=== PATIENT | female | born 1945 | race Asian ===

== ENCOUNTER 2017-07-26 14:20 | Inpatient (IN) | payer OTHER, MEDICAID ==
[~2017-07-26] VITALS: Ht 157.5 cm; Wt 54.9 kg
[2017-07-26] MEDS ORDERED: DEXAMETHASONE SOD PHOSPHATE 10 MG/ML VIAL ONE (14:57)
[2017-07-26] MEDS ORDERED: IPRATROPIUM NEB FS 0.5 MG/2.5 ML AMPUL.NEB NEB ONE (15:00)
[2017-07-26] MEDS ORDERED: ALBUTEROL FS 2.5 MG/3 ML VIAL.NEB CONTNEB ONE (15:00)
[2017-07-26] MEDS ORDERED: DEXAMETHASONE SOD PHOSPHATE 10 MG/ML VIAL IV ONE (15:00)
--- NOTE | 2017-07-26 15:00 | NUR ---
[id number]: SOB, ALBUTEROL BT GIVEN IN FIELD. BS IN FIELD 268. SEEN BY FOR EVAL. VSS. PT AAOX3. IV ACCESS LIFT TRUCK MECHANIC. REMAINS ON MAS. SAFETY AND COMFORT MEASURES PROVIDED. WILL MONITOR.
[2017-07-26] MEDS ORDERED: ALBUTEROL FS 2.5 MG/3 ML VIAL.NEB ONE (15:06)
[2017-07-26] MEDS ORDERED: RACEPINEPHRINE HCL 2.25% NEB 0.5 ML VIAL.NEB IH ONE (15:06)
--- NOTE | 2017-07-26 15:10 | NUR ---
RT CALLED FOR BREATHING TX.
[2017-07-26 15:23] LABS: BASOPHILS % (AUTO) 0.3 % (0.0-2.0); EOSINOPHILS % (AUTO) 0.2 % (0.0-6.0); HEMATOCRIT 37 % (33-45); HEMOGLOBIN 12.2 g/dL (11.5-14.8); LYMPHOCYTES # (AUTO) 0.9 /CMM (0.8-4.8); LYMPHOCYTES % (AUTO) 17.6 % (20.0-44.0); MEAN CORPUSCULAR HEMOGLOBIN 29 PG (26.0-33.0); MEAN CORPUSCULAR HGB CONC 33 g/dl (31.0-36.0); MEAN CORPUSCULAR VOLUME 87 fL (82-100); MONOCYTES # (AUTO) 0.8 /CMM (0.1-1.30); MONOCYTES % (AUTO) 16.1 % (2.0-12.0); NEUTROPHILS # (AUTO) 3.3 /CMM (1.8-8.9); NEUTROPHILS % (AUTO) 65.8 % (43.0-81.0); PLATELET COUNT (AUTO) 189 /CMM (150-450); RDW COEFFICIENT OF VARIATION 13.7 (11.5-15.0)
[2017-07-26 15:40] LABS: CALCIUM, SERUM 8.6 mg/dL (8.5-10.1); CARBON DIOXIDE 25 mmol/L (21-32); CHLORIDE 101 mmol/L (98-107); CREATININE 1.4 mg/dL (0.6-1.3); GLUCOSE 275 mg/dL (74-106); POTASSIUM 4.4 mmol/L (3.5-5.1); SODIUM SERUM 136 mmol/L (136-145); UREA NITROGEN, BLOOD 25 mg/dL (7-18)
--- NOTE | 2017-07-26 15:45 | NUR ---
MILTON AT BS.
[2017-07-26 15:47] LABS: TROPONIN I < 0.017 ng/mL (0.00-0.056)
[2017-07-26 15:50] LABS: ALANINE AMINOTRANSFERASE 63 U/L (12-78); ALKALINE PHOSPHATASE 105 U/L (46-116); ASPARTATE AMINOTRANSFERASE 27 U/L (15-37); B-TYPE NATRIURETIC PEPTIDE 92 PG/ML (0-125); BILIRUBIN,DIRECT 0.1 mg/dL (0.0-0.2); BILIRUBIN,TOTAL 0.3 mg/dL (0.2-1.0); TOTAL PROTEIN, SERUM 6.9 g/dL (6.4-8.2)
[2017-07-26] MEDS ORDERED: ASPI-1169 PO (16:22)
[2017-07-26] MEDS ORDERED: SITA50TA PO (16:22)
[2017-07-26] MEDS ORDERED: ATOR10TA PO (16:22)
[2017-07-26] MEDS ORDERED: OMEP20CA10 PO (16:22)
[2017-07-26] MEDS ORDERED: BUDE10.2 IH (16:22)
[2017-07-26] MEDS ORDERED: ALBU8.5H8 IH (16:22)
[2017-07-26] MEDS ORDERED: ALEN70TA45 PO (16:22)
[2017-07-26 17:23] LABS: LYMPHOCYTES % (MANUAL) 15 % (16-48); MONOCYTES % (MANUAL) 15 % (0-11.0); NEUTROPHILS % (MANUAL) 70 (42-76)
--- NOTE | 2017-07-26 17:30 | NUR ---
FAMILY MEMBER, LANDRY AT BS AND UPDATED WITH POC. PT WAS ALSO FED PER REQUEST.
[2017-07-26] MEDS ORDERED: METF500T4 PO (18:18)
[2017-07-26] MEDS ORDERED: QUET25TA PO (18:18)
[2017-07-26] MEDS ORDERED: PALI117D IM (18:18)
[2017-07-26] MEDS ORDERED: LITH300T3 PO (18:18)
[2017-07-26] MEDS ORDERED: LAMO150T PO (18:18)
[2017-07-26] MEDS ORDERED: TIOT18CA3 IH (18:18)
[2017-07-26] MEDS ORDERED: IV NS 0.9% 1,000 ML IV PRN (18:45)
[2017-07-26] MEDS ORDERED: ONDANSETRON HCL/PF 4 MG/2 ML VIAL IVP PRN (19:00)
[2017-07-26] MEDS ORDERED: MAG HYDROX/AL HYDROX/SIMETH 30 ML UDC PO PRN (19:00)
[2017-07-26] MEDS ORDERED: DEXTROSE 50%-WATER 50 ML DISP.SYRIN IV PRN (19:00)
[2017-07-26] MEDS ORDERED: IPRATROPIUM NEB FS 0.5 MG/2.5 ML AMPUL.NEB NEB PRN (19:00)
[2017-07-26] MEDS ORDERED: ACETAMINOPHEN 325 MG TABLET PO PRN (19:00)
[2017-07-26] MEDS ORDERED: ALBUTEROL FS 2.5 MG/0.5 ML VIAL.NEB NEB PRN (19:00)
--- NOTE | 2017-07-26 20:19 | NUR ---
REPORT CALLED TO BONDERIZER JEM. WILL TRANSPORT PT VIA ACLS PROTOCOL.
--- NOTE | 2017-07-26 20:45 | NUR ---
ADMISSION NOTES: RECEIVED REPORT FROM ED FOR E.R, PT CAME IN FOR ASTHMA EXACERBATION, BROUGHT TO THE UNIT VIA WHEELCHAIR, A/O X3, ROMANSH BUT ABLE TO UNDERSTAND AND SPEAK ROMANIAN, ABLE TO MAKE NEEDS KNOWN. PT DENIES ANY PAIN OR DISCOMFORT AT THIS TIME. NOTED INSPIRATORY WHEEZING, PER REPORT PT GIVEN BREATHING TX PRIOR TO COMING TO THE UNIT. PT HAS LEFT WRIST G 18, PATENT AND FLUSHING WELL, BUT PT C/O DISCOMFORT ON IV SITE, WILL TRY TO INSERT NEW ACCESS. ORIENTED PT TO UNIT POLICY AND HOURLY ROUNDING. PLACED ON TELE MONITORING, CURRENTLY SINUS RHYTHM HR 99, PT TACHYPNEIC RR 26, 95% ON RA, WILL PLACE ON 2L VIA NC FOR SUPPORT FOR BREATHING, VS TAKEN AND RECORDED, INVENTORY OF BELONGING COMPLETED BY JESENIA PARKINSON, CONFISCATED OIL WELL SERVICES SUPERINTENDENT AND CIGARETTE, PT REFUSED TO SEND HER DONIS TO SAFE, EDUCATION PROVIDED TO THE PT. SKIN ASSESSMENT PERFORMED AND NO SKIN ISSUE NOTED. SAFETY PRECAUTIONS FOR FALL INITIATED CALL LIGHT IN REACH, WILL CONTINUE TO MONITOR
[2017-07-26 21:30] VITALS: BP 149/72
[2017-07-26] MEDS: BLOOD SUGAR DIAGNOSTIC 1 EACH STRIP IN SCH (21:46)
[2017-07-26] MEDS: methylPREDNISolone SOD SUCC 40 MG/ML VIAL IV SCH (21:46)
--- NOTE | 2017-07-26 22:00 | NUR ---
RN NOTES: PT REFUSED IVF, STATED SHE DOESNT NEED IT SHE'S DRINKING ENOUGH FLUIDS, EDUCATION PROVIDED TO THE PT
[2017-07-26] MEDS: INSULIN REGULAR, HUMAN 100 UNIT/ML 3 ML VIAL SQ PRN (22:04)
--- NOTE | 2017-07-26 22:04 | NUR ---
ACCU CHECK: BLOOD SUGAR IS 299, 6UNITS OF INSULIN GIVEN PER SLIDING SCALE, PT TOLERATING PO INTAKE ON CARDIAC CCHO DIET,
--- NOTE | 2017-07-26 22:24 | NUR ---
Paged epic: contacted [facility] call center professional, relayed about pt's request for seroquel, stated she needs to take her seroquel dose for tonight 12.5mg, she hasnt take her seroquel dose, talked to [facility] call center professional, per okay to give seroquel 12.5mg x 1 dose tonight
[2017-07-26] MEDS ORDERED: QUETIAPINE FUMARATE 25 MG TABLET PO ONE (22:30)
--- NOTE | 2017-07-26 22:43 | NUR ---
SEROQUEL X1: ONE TIME DOSE ORDERED BY , FOR PT REQUEST OF SEROQUEL, SHE STATED SHE DIDNT TAKE HER NIGHT TIME DOSE SHE WAS BROUGHT TO ER DUE TO ASTHMA
--- NOTE | 2017-07-26 23:00 | NUR ---
CALLED RT TO GIVE PRN BREATHING TX
--- NOTE | 2017-07-26 23:30 | NUR ---
RN NOTES: INFORMED PT SHE IS ON BED REST, OFFERED BED SIDE COMMODE FOR THE PT, HOWEVER PT REFUSED, STATED SHE'S NOT COMFORTABLE USING COMMODE, AND PREFER TO USE THE RESTROOM INSTEAD, INFORMED PT OF POSSIBILITY OF INCREASING SOB WITH EXERTION BUT PT DOESNT LISTEN, OFFERED BED MOYER, PT REFUSED IT TOO.
[2017-07-26] MEDS: IPRATROPIUM NEB FS 0.5 MG/2.5 ML AMPUL.NEB NEB SCH (23:58)
[2017-07-27] VITALS: BP 135/67
[2017-07-27 04:00] VITALS: BP_SYST 123; BP_SYST 138; BP_DIAS 66; BP_DIAS 88
[2017-07-27] MEDS: methylPREDNISolone SOD SUCC 40 MG/ML VIAL IV SCH ×3 (04:24→22:02)
[2017-07-27] MEDS: BLOOD SUGAR DIAGNOSTIC 1 EACH STRIP IN SCH ×2 (06:14→12:31)
[2017-07-27] MEDS: INSULIN REGULAR, HUMAN 100 UNIT/ML 3 ML VIAL SQ PRN ×3 (06:15→22:14)
--- NOTE | 2017-07-27 06:16 | NUR ---
ACCU CHECK: BLOOD SUGAR CHECKED AND RESULT IS 232, 4UNITS OF INSULIN GIVEN PER SLIDING SCALE, PT ON CARDIAC DIET TOLERATING PO INTAKE WELL, ALSO ON STEROIDS
--- NOTE | 2017-07-27 06:44 | NUR ---
RESIDENT PROGRAM SPECIALIST CLOSING NOTES: PT IN BED, AWAKE, DENIES ANY PAIN AT THIS TIME, PT REMAIN ON 2L VIA NC RESPIRATION EVEN, STILL TACHYPNEIC RR 23, INSPIRATORY WHEEZING NOTED, BREATHING TX GIVEN SCHEDULED, ON TELE MONITORING SINUS RHYTHM HR 88. LEFT FA IV ACCESS REMAINS PATENT AND FLUSHING WELL, ON HL. VS REMAINS STABLE, NEEDS ATTENDED. SAFETY PRECAUTIONS FOR FALL REMAIN ENGAGED, CALL LIGHT IN REACH, WILL ENDORSE TO DAY RN FOR SRIKANTH.
[2017-07-27 07:14] LABS: BASOPHILS % (AUTO) 0.3 % (0.0-2.0); HEMATOCRIT 36 % (33-45); HEMOGLOBIN 12.1 g/dL (11.5-14.8); LYMPHOCYTES # (AUTO) 0.7 /CMM (0.8-4.8); LYMPHOCYTES % (AUTO) 16.5 % (20.0-44.0); MEAN CORPUSCULAR HEMOGLOBIN 30 PG (26.0-33.0); MEAN CORPUSCULAR HGB CONC 34 g/dl (31.0-36.0); MEAN CORPUSCULAR VOLUME 87 fL (82-100); MONOCYTES # (AUTO) 0.3 /CMM (0.1-1.30); MONOCYTES % (AUTO) 7.2 % (2.0-12.0); NEUTROPHILS # (AUTO) 3.1 /CMM (1.8-8.9); PLATELET COUNT (AUTO) 198 /CMM (150-450); RDW COEFFICIENT OF VARIATION 13.6 (11.5-15.0); RED BLOOD CELL COUNT(AUTO) 4.09 MIL/uL (4.0-5.2)
[2017-07-27] MEDS: IPRATROPIUM NEB FS 0.5 MG/2.5 ML AMPUL.NEB NEB SCH ×3 (07:35→14:37)
[2017-07-27 07:44] LABS: CALCIUM, SERUM 8.5 mg/dL (8.5-10.1); CARBON DIOXIDE 26 mmol/L (21-32); CHLORIDE 103 mmol/L (98-107); CREATININE 1.2 mg/dL (0.6-1.3); GLUCOSE 232 mg/dL (74-106); MAGNESIUM 2.1 mg/dL (1.8-2.4); PHOSPHORUS 2.9 mg/dL (2.5-4.9); POTASSIUM 4.6 mmol/L (3.5-5.1); SODIUM SERUM 137 mmol/L (136-145); UREA NITROGEN, BLOOD 23 mg/dL (7-18)
--- NOTE | 2017-07-27 07:48 | NUR ---
TELE/RN OPENING NOTE RECEIVED PATIENT IN BED AWAKE. ALERT AND ORIENTED X3. RESPIRATION REGULAR AND UNLABORED. NOTED BILATERAL WHEEZING. ON OXYGEN AT 2L/MIN VIA NC. DENIES PAIN, SOB AT THIS TIME. ON MULTIPLE TUBE WINDING MACHINE OPERATOR AND SR AT 90. IN NO APPARENT DISTRESS. ASSISTED TO RESTROOM. ABLE TO VOID FREELY. NOTED CLEAR, YELLOW COLOR URINE. LFA G 22 FL. PATIENT IN NO APPARENT DISTRESS. BED LOW AND LOCKED. SIDE RAILS UP X3. CALL LIGHT WITHIN REACH. WILL CONTINUE TO MONITOR.
[2017-07-27 07:51] LABS: CHOLESTEROL 136 mg/dL (<200); HDL CHOLESTEROL 88 mg/dL (40-60); LDL 52 mg/dL (0-99); TRIGLYCERIDES 49 mg/dL (30-150)
[2017-07-27 08:00] VITALS: BP 125/66
[2017-07-27] MEDS: PANTOPRAZOLE 40 MG TABLET.DR PO SCH (08:04)
[2017-07-27] MEDS: ASPIRIN 81 MG TAB.CHEW PO SCH (08:04)
[2017-07-27] MEDS ORDERED: DEXTROSE 50%-WATER 50 ML DISP.SYRIN IV PRN (13:30)
[2017-07-27] MEDS ORDERED: LORAZEPAM INJ 2 MG/ML VIAL IV ONE (13:30)
[2017-07-27] MEDS: BLOOD SUGAR DIAGNOSTIC 1 EACH STRIP VI SCH ×3 (14:17→21:47)
[2017-07-27] MEDS: ALBUTEROL FS 2.5 MG/0.5 ML VIAL.NEB NEB SCH ×2 (14:37→19:26)
[2017-07-27 16:00] VITALS: BP 131/58
[2017-07-27] MEDS: *INSULIN REGULAR(HUMULIN R)HUM 100 UNIT/ML VIAL SQ PRN (17:59)
[2017-07-27] MEDS: LamoTRIgine 100 MG TABLET PO SCH (18:03)
[2017-07-27] MEDS: QUETIAPINE FUMARATE 25 MG TABLET PO SCH (18:04)
[2017-07-27] MEDS: LITHIUM CARBONATE (300 MG CAP) 300 MG CAPSULE PO SCH (18:04)
[2017-07-27] MEDS: ATORVASTATIN 10 MG TABLET PO SCH (18:07)
--- NOTE | 2017-07-27 18:12 | NUR ---
MS/RN CLOSING NOTE PATIENT A/O X3. BILATERAL WHEEZING NOTED. ON OXYGEN AT 2 l /MIN VIA NC. RESPIRATION REGULAR AND UNLABORED. DENIES SOB, PAIN AT THIS TIME. THE PATIENT WITH LFA G 22 HL. GOOD SKIN CARE RENDERED. KEPT CLEAN AND COMFORTABLE. ALL NEEDS ATTENDED AND ANTICIPATED. CALL LIGHT WITHIN REACH. SIDE RAILS UP X2. WILL ENDORSE TO NIGH SHIFT.
[2017-07-27 20:00] VITALS: BP 128/68
--- NOTE | 2017-07-27 20:20 | NUR ---
A/O x 4 o2@ 2L n/c s/l 22 ga to Left forearm intact, patent and no s/s of infection. Denies of any distress. Siderails up, call light within reach bed in lowest position. Remain stable and cooperative with staff.
[2017-07-28] MEDS: IPRATROPIUM NEB FS 0.5 MG/2.5 ML AMPUL.NEB NEB SCH ×4 (01:17→19:41)
[2017-07-28] MEDS: ALBUTEROL FS 2.5 MG/0.5 ML VIAL.NEB NEB SCH ×4 (01:17→19:41)
[2017-07-28] MEDS: methylPREDNISolone SOD SUCC 40 MG/ML VIAL IV SCH ×3 (04:21→21:53)
[2017-07-28] MEDS: *INSULIN REGULAR(HUMULIN R)HUM 100 UNIT/ML VIAL SQ PRN ×2 (06:14→22:36)
[2017-07-28] MEDS: PANTOPRAZOLE 40 MG TABLET.DR PO SCH (06:21)
--- NOTE | 2017-07-28 07:05 | NUR ---
RN NOTES PT IS SITTING UP IN BED, RESTING COMFORTABLY. IV ON LFA INTACT AND SL. PT ON 2L, RESPIRATIONS ARE EVEN AND UNLABORED. REQUESTED 1:1 SITTER FOR THE PT DUE TO FALL RISK BUT NO ONE WAS AVAILABLE AT THIS TIME. BED ALARM IS ON, SIDE RAILS UP X2, CALL LIGHT IS IN REACH. WILL CONTINUE TO MONITOR.
[2017-07-28] MEDS: INSULIN REGULAR, HUMAN 100 UNIT/ML 3 ML VIAL SQ PRN ×3 (07:59→17:37)
[2017-07-28] MEDS: BLOOD SUGAR DIAGNOSTIC 1 EACH STRIP VI SCH ×4 (07:59→21:55)
[2017-07-28 08:00] VITALS: BP 144/69
[2017-07-28] MEDS: ASPIRIN 81 MG TAB.CHEW PO SCH (08:02)
[2017-07-28] MEDS: CEFTRIAXONE 1 G in IV D5W 50 ML IV SCH (10:54)
[2017-07-28 16:00] VITALS: BP 130/66
[2017-07-28] MEDS: LITHIUM CARBONATE (300 MG CAP) 300 MG CAPSULE PO SCH (17:33)
[2017-07-28] MEDS: LamoTRIgine 100 MG TABLET PO SCH (17:33)
[2017-07-28] MEDS: QUETIAPINE FUMARATE 25 MG TABLET PO SCH (17:33)
[2017-07-28] MEDS: ATORVASTATIN 10 MG TABLET PO SCH (17:33)
--- NOTE | 2017-07-28 18:31 | NUR ---
RN NOTES PT IS SITTING UP IN BED, AWAKE AND ALERT. PT ON 2L O2, RESPIRATIONS ARE EVEN AND UNLABORED. IV ON LFA INTACT AND SL. ALL MEDS WERE GIVEN ORDERED AND PT NEEDS MET. PT WAS ABLE TO SHOWER THIS EVENING. 1730 ACCUCHECK WAS 169, 3 UNITS OF INSULIN GIVEN. SAFETY MEASURES ARE IN PLACE, CALL LIGHT IS IN REACH. WILL ENDORSE TO PACK WORKER RN FOR CONTINUITY OF CARE.
--- NOTE | 2017-07-28 19:20 | NUR ---
MSRN SLEEPING, APPEARS COMFORTABLE. TO CONTINUE.
[2017-07-28] MEDS ORDERED: IPRATROPIUM NEB FS 0.5 MG/2.5 ML AMPUL.NEB NEB SCH (19:30)
[2017-07-28 20:00] VITALS: BP 144/67
--- NOTE | 2017-07-28 22:06 | NUR ---
MSRN BS WAS 314, COVERED WITH 8 UNITS OF REGULAR INSULIN SQ. SNACKS PROVIDED. BRP WITH STANDBY ASSIST, SAFETY AWARENESS EMPHASIZED TO PATIENT, WELL UNDERSTOOD. REMINDED TO CALL STAFF EVERYTIME SHE NEED TO USE RESTROOM. STATED ABLE TO GO BY HERSELF. EXPLAINED RISK OF FALLING, STATED WILL CALL IF NEEDED. OFFERED BSC REFUSED. SOB ON MIN EXERTION 02 2L VIA NC MAINTAINED. CLOSELY WATCHED.
[2017-07-29] MEDS: IPRATROPIUM NEB FS 0.5 MG/2.5 ML AMPUL.NEB NEB SCH ×3 (00:58→13:43)
[2017-07-29] MEDS: ALBUTEROL FS 2.5 MG/0.5 ML VIAL.NEB NEB SCH ×3 (00:58→13:43)
--- NOTE | 2017-07-29 04:45 | NUR ---
MSRN FULLY AWAKE, NEEDS ATTENDED. EXERTIONAL SOB SEEN OFF O2. ESCORTED BACK TO ROOM O2 EMPHASIZED USE. ALL NEEDS MADE, BEDREST INSTRUCTED. CLOSELY WATCHED.
[2017-07-29] MEDS: methylPREDNISolone SOD SUCC 40 MG/ML VIAL IV SCH ×2 (05:50→12:48)
--- NOTE | 2017-07-29 06:40 | NUR ---
MSRN BLOOD SUGAR 183, COVERRED WITH 2 UNITS REG INSULIN SQ. NO OTHER NEEDS MADE
[2017-07-29] MEDS: BLOOD SUGAR DIAGNOSTIC 1 EACH STRIP VI SCH ×2 (07:02→11:45)
[2017-07-29] MEDS: INSULIN REGULAR, HUMAN 100 UNIT/ML 3 ML VIAL SQ PRN ×2 (07:06→11:52)
--- NOTE | 2017-07-29 07:35 | NUR ---
RN OPENING NOTES RECEIVED PT. IN BED A&OX3. BREATHING EVENLY, AND UNLABORED ON OXYGEN AT 2L/MIN. PT. HAS A COUGH. NO S/S OF ACUTE DISTRESS. IV ACCESS ON LEFT FOREARM IS INTACT. BED IS IN LOWEST AND LOCKED POSITION. 2 SIDE RAILS UP, AND INSTRUCTED PT. TO USE CALL LIGHT FOR ASSISTANCE. ALL NEEDS MET. WILL CONTINUE TO ASSESS AND MONITOR.
[2017-07-29 08:00] VITALS: BP 153/67
[2017-07-29] MEDS: ASPIRIN 81 MG TAB.CHEW PO SCH (08:12)
[2017-07-29] MEDS: PANTOPRAZOLE 40 MG TABLET.DR PO SCH (08:12)
[2017-07-29] MEDS: CEFTRIAXONE 1 G in IV D5W 50 ML IV SCH (10:09)
[2017-07-29] MEDS ORDERED: PNEUMOCOCCAL 23-VAL P-SAC VAC 0.5 ML VIAL SQ ONE (11:30)
--- NOTE | 2017-07-29 14:49 | NUR ---
WORKFORCE STAFFING ADVISOR PT. WAS DISCHARGED HOME IN MEDICALLY STABLE CONDITION BY WHEELCHAIR. PT. IS LEAVING HOME WITH LANDRY WONG IN A PRIVATE CAR. DISCHARGE INSTRUCTIONS WITH EDUCATION WAS PROVIDED, AND PT. VERBALIZED UNDERSTANDING. NEW MEDICATION LIST WITH PRESCRIPTION WAS EXPLAINED, AND PT. VERBALIZED UNDERSTANDING. BELONGING LIST WAS CHECKED, AND SIGNED. IV AND AND ID BAND REMOVED WITHOUT COMPLICATIONS. PT. LEFT WITH DISCHARGE PACKET.
== END 2017-07-29 14:44 | disposition home or self-care (01) | DRG 202 ==
LOC: ER 14:23 → TELE 20:02 → MED 07-27 10:14
PROVIDERS: ADMIT Nurse Practitioner Acute Care; ATTEND Nurse Practitioner Acute Care
DX: J45.901 Unspecified asthma with (acute) exacerbation (principal); N17.0 Acute kidney failure with tubular necrosis; N17.9 Acute kidney failure, unspecified; E11.22 Type 2 diabetes mellitus with diabetic chronic kidney disease; E11.65 Type 2 diabetes mellitus with hyperglycemia; I12.9 Hypertensive chronic kidney disease with stage 1 through stage 4 chronic kidney disease, or unspecified chronic kidney disease; N18.9 Chronic kidney disease, unspecified; F20.9 Schizophrenia, unspecified; Z79.84 Long term (current) use of oral hypoglycemic drugs; Z79.51 Long term (current) use of inhaled steroids; Z79.899 Other long term (current) drug therapy; E78.5 Hyperlipidemia, unspecified; F31.9 Bipolar disorder, unspecified; Z79.82 Long term (current) use of aspirin; F17.200 Nicotine dependence, unspecified, uncomplicated; F29 Unspecified psychosis not due to a substance or known physiological condition
CPT/HCPCS: 36415; 71045-TC; 80048-TC; 80061-TC; 80076-TC; 82962-TC; 83735-TC; 83880; 84100-TC; 84443-TC; 84484-TC; 85025-TC; 87081-TC; 90732; 94799-TC; A4606; J0696; J1100; J1815; J2060; J2920; J7040; J7060; Z7610

== ENCOUNTER 2018-06-25 00:53 | Emergency (ER) | payer OTHER, MEDICAID ==
[~2018-06-25] VITALS: Ht 157.5 cm; Wt 59.0 kg
[~2018-06-25 00:53] MED LIST: ALBU8.5H8 IH; ASPI-1169 PO; ATOR10TA PO; LAMO150T PO; LITH300T3 PO; METF-440 PO; OMEP20CA10 PO; PALI117D IM; QUET25TA PO; SITA50TA PO; TIOT18CA3 IH
--- NOTE | 2018-06-25 01:00 | NUR ---
PT BIBRA FROM HOME COMPLAINING OF MIDSTERNAL CHEST PAIN RADIATING TO UPPER BACK X4 DAYS. PT STATES PAIN IS WORSE WITH INSPIRATION. NOTED NONPRODUCTIVE COUGH WITH EXPIRATORY WHEEZING, PT STATES THAT IS NORMAL FOR HER. PT DENIES HEADACHE, DIZZINESS, N/V/D, ABDOMINAL PAIN. PT AAOX4. SKIN WARM AND INTACT. VITAL SIGNS STABLE. NO ACUTE DISTRESS NOTED AT THIS TIME. PT PLACED ON CONTINUOUS NUCLEAR WEAPONS CUSTODIAN, WILL CONTINUE TO MONITOR.
--- NOTE | 2018-06-25 01:05 | NUR ---
MD AT BEDSIDE FOR EVALUATION
[2018-06-25] MEDS ORDERED: oxyCODONE/APAP (5/325 MG) 1 UDTAB TABLET ONE ×2 (01:10→03:48)
[2018-06-25] MEDS ORDERED: NITROGLYCERIN 0.4 MG/TAB BOTTLE ONE (01:10)
[2018-06-25] MEDS ORDERED: ASPIRIN 81 MG TAB.CHEW ONE (01:10)
[2018-06-25] MEDS ORDERED: NITROGLYCERIN PACKET 1 GM PACKET ONE (01:10)
--- NOTE | 2018-06-25 01:15 | NUR ---
IV INITIATED RIGHT AC 20G. LABS DRAWN FROM SITE. OPTICIAN MANAGER AT BEDSIDE FOR COLLECTION. IV INTACT AND PATENT, PLACED ON SALINE LOCK
--- NOTE | 2018-06-25 01:24 | NUR ---
RADIOLOGY AT BEDSIDE FOR CXR
[2018-06-25 01:25] LABS: BASOPHILS % (AUTO) 0.4 % (0.0-2.0); HEMATOCRIT 41 % (33-45); HEMOGLOBIN 13.6 g/dL (11.5-14.8); LYMPHOCYTES # (AUTO) 1.5 /CMM (0.8-4.8); LYMPHOCYTES % (AUTO) 18.5 % (20.0-44.0); MEAN CORPUSCULAR HGB CONC 33 g/dl (31.0-36.0); MEAN CORPUSCULAR VOLUME 89 fL (82-100); MONOCYTES # (AUTO) 0.7 /CMM (0.1-1.30); MONOCYTES % (AUTO) 8.5 % (2.0-12.0); NEUTROPHILS # (AUTO) 5.7 /CMM (1.8-8.9); NEUTROPHILS % (AUTO) 70.6 % (43.0-81.0); PLATELET COUNT (AUTO) 268 /CMM (150-450); RED BLOOD CELL COUNT(AUTO) 4.65 MIL/uL (4.0-5.2); WHITE BLOOD COUNT (AUTO) 8.1 K/uL (4.3-11.0)
[2018-06-25] MEDS ORDERED: oxyCODONE/APAP (5/325 MG) 1 UDTAB TABLET PO ONE ×2 (01:30→04:00)
[2018-06-25] MEDS ORDERED: NITROGLYCERIN 0.4 MG/TAB BOTTLE SL ONE (01:30)
[2018-06-25] MEDS ORDERED: NITROGLYCERIN PACKET 1 GM PACKET TD ONE (01:30)
[2018-06-25] MEDS ORDERED: ASPIRIN 81 MG TAB.CHEW PO ONE (01:30)
[2018-06-25 01:34] LABS: CALCIUM, SERUM 9.7 mg/dL (8.5-10.1); CARBON DIOXIDE 26 mmol/L (21-32); CHLORIDE 103 mmol/L (98-107); CREATININE 1.3 mg/dL (0.6-1.3); GLUCOSE 158 mg/dL (74-106); SODIUM SERUM 139 mmol/L (136-145); UREA NITROGEN, BLOOD 26 mg/dL (7-18)
[2018-06-25 01:40] LABS: D-DIMER 0.93 mg/L(FEU (0.17-0.50)
[2018-06-25 01:47] LABS: ALANINE AMINOTRANSFERASE 32 U/L (12-78); ALBUMIN 3.5 g/dL (3.4-5.0); ALKALINE PHOSPHATASE 84 U/L (46-116); ASPARTATE AMINOTRANSFERASE 19 U/L (15-37); B-TYPE NATRIURETIC PEPTIDE 71 PG/ML (0-125); BILIRUBIN,DIRECT 0.1 mg/dL (0.0-0.2); BILIRUBIN,TOTAL 0.5 mg/dL (0.2-1.0); TOTAL PROTEIN, SERUM 7.1 g/dL (6.4-8.2)
[2018-06-25] MEDS ORDERED: methylPREDNISolone SOD SUCC 125 MG/2ML VIAL ONE (01:58)
[2018-06-25] MEDS ORDERED: CT SWABBABLE VALVE TRANS SET 1 EA INFUS.SET MC ONE (01:59)
[2018-06-25] MEDS ORDERED: IV NS 0.9% 250 ML IV ONE (01:59)
[2018-06-25] MEDS ORDERED: IOHEXOL-350 100 ML VIAL IV ONE (01:59)
[2018-06-25] MEDS ORDERED: ALBUTEROL FS 2.5 MG/3 ML VIAL.NEB NEB ONE (02:00)
[2018-06-25] MEDS ORDERED: methylPREDNISolone SOD SUCC 125 MG/2ML VIAL IV ONE (02:00)
[2018-06-25] MEDS ORDERED: IV NS 0.9% 500 ML BAG IV ONE (02:00)
[2018-06-25] MEDS ORDERED: IPRATROPIUM NEB FS 0.5 MG/2.5 ML AMPUL.NEB NEB ONE (02:00)
--- NOTE | 2018-06-25 02:09 | NUR ---
PT BROUGHT BY RADIOLOGY FOR CT
[2018-06-25] MEDS ORDERED: ALBUTEROL FS 2.5 MG/3 ML VIAL.NEB ONE (02:30)
[2018-06-25] MEDS ORDERED: IPRATROPIUM NEB FS 0.5 MG/2.5 ML AMPUL.NEB ONE (02:30)
--- NOTE | 2018-06-25 02:30 | NUR ---
PT RETURNED FROM CT
--- NOTE | 2018-06-25 02:32 | NUR ---
RT AT BEDSIDE FOR BREATHING TREATMENT
[2018-06-25] MEDS ORDERED: ONDANSETRON HCL/PF 4 MG/2 ML VIAL ONE (03:48)
[2018-06-25] MEDS ORDERED: ONDANSETRON HCL/PF - ER 4 MG/2 ML VIAL IV ONE (04:00)
--- NOTE | 2018-06-25 04:36 | NUR ---
CODING TECHNICIAN AT BEDSIDE FOR BLOOD DRAW
--- NOTE | 2018-06-25 05:54 | NUR ---
Patient discharged to home in stable condition. Written and verbal after care instructions given. Patient verbalizes understanding of instruction. IV removed. Catheter intact and site benign. Pressure and 4x4 applied to site. No bleeding noted. Pt ambulatory with a steady gait
[2018-06-25 05:55] VITALS: BP 110/75
== END 2018-06-25 05:56 | disposition home or self-care (01) ==
LOC: ER 00:55
DX: J20.9 Acute bronchitis, unspecified (principal); R07.89 Other chest pain; F17.200 Nicotine dependence, unspecified, uncomplicated; I10 Essential (primary) hypertension; R39.15 Urgency of urination; E11.9 Type 2 diabetes mellitus without complications; Z71.6 Tobacco abuse counseling; Z79.82 Long term (current) use of aspirin
CPT/HCPCS: 36415; 71045; 71275; 80048; 80076; 83880; 84484 ×2; 85025; 85378; 85730; 87040 ×2; 93005; 94640; 96374; 96375; 99284; 99406; A4606; J2405; J2930; J7040; J7050; Q9967

== ENCOUNTER 2018-06-28 13:24 | Emergency (ER) | payer OTHER, MEDICAID ==
[~2018-06-28] VITALS: Ht 152.4 cm; Wt 58.5 kg
[2018-06-28] MEDS ORDERED: Magnesium 1GM/D5W 100ML PREMIX 200 ML IV ONE (13:32)
--- NOTE | 2018-06-28 13:33 | NUR ---
PT WESLEY FROM DETENTION FOR SOB. PT AAOX4, MILD RESP DISTRESS, NOTED WITH WHEEZING, SKIN W/D TO TOUCH, DENIES ANY PAIN/DISCOMFORT, PT ON MONITOR, ON 2LPM VIA NC, O2 SAT AT 96, VSS, PENDING ER PROVIDER EJ
--- NOTE | 2018-06-28 13:36 | NUR ---
BLOOD COLLECTED FROM [facility]20 AND HANDED TO STRAIGHT CUTTER MACHINE,
[2018-06-28] MEDS ORDERED: Magnesium 1GM/D5W 100ML PREMIX 100 ML IV ONE ×2 (13:38→13:53)
[2018-06-28] MEDS ORDERED: CEFTRIAXONE 1 G VIAL ONE (13:39)
[2018-06-28 13:41] LABS: BASOPHILS % (AUTO) 0.4 % (0.0-2.0); HEMATOCRIT 42 % (33-45); HEMOGLOBIN 14.1 g/dL (11.5-14.8); LYMPHOCYTES # (AUTO) 0.8 /CMM (0.8-4.8); LYMPHOCYTES % (AUTO) 9.4 % (20.0-44.0); MEAN CORPUSCULAR HGB CONC 33 g/dl (31.0-36.0); MEAN CORPUSCULAR VOLUME 90 fL (82-100); MONOCYTES # (AUTO) 0.4 /CMM (0.1-1.30); MONOCYTES % (AUTO) 4.5 % (2.0-12.0); NEUTROPHILS # (AUTO) 7.3 /CMM (1.8-8.9); NEUTROPHILS % (AUTO) 85.7 % (43.0-81.0); PLATELET COUNT (AUTO) 263 /CMM (150-450); RED BLOOD CELL COUNT(AUTO) 4.69 MIL/uL (4.0-5.2); WHITE BLOOD COUNT (AUTO) 8.5 K/uL (4.3-11.0)
[2018-06-28] MEDS ORDERED: methylPREDNISolone SOD SUCC 125 MG/2ML VIAL ONE (13:44)
[2018-06-28] MEDS ORDERED: IPRATROPIUM NEB FS 0.5 MG/2.5 ML AMPUL.NEB ONE (13:47)
[2018-06-28] MEDS ORDERED: ALBUTEROL FS 2.5 MG/3 ML VIAL.NEB ONE (13:47)
[2018-06-28 13:50] LABS: CALCIUM, SERUM 8.5 mg/dL (8.5-10.1); CARBON DIOXIDE 27 mmol/L (21-32); CHLORIDE 101 mmol/L (98-107); CREATININE 1.1 mg/dL (0.6-1.3); GLUCOSE 306 mg/dL (74-106); POTASSIUM 4.8 mmol/L (3.5-5.1); SODIUM SERUM 134 mmol/L (136-145); UREA NITROGEN, BLOOD 24 mg/dL (7-18)
[2018-06-28] MEDS ORDERED: ALBUTEROL FS 2.5 MG/3 ML VIAL.NEB NEB ONE (14:00)
[2018-06-28] MEDS ORDERED: MORPHINE SULFATE INJ 2 MG/ML DISP.SYRIN IV ONE (14:00)
[2018-06-28] MEDS ORDERED: IPRATROPIUM NEB FS 0.5 MG/2.5 ML AMPUL.NEB NEB ONE (14:00)
[2018-06-28] MEDS ORDERED: CEFTRIAXONE 1GM BAG (ER ONLY) 50 ML IV ONE (14:00)
[2018-06-28] MEDS ORDERED: methylPREDNISolone SOD SUCC 125 MG/2ML VIAL IV ONE (14:00)
[2018-06-28] MEDS ORDERED: ONDANSETRON HCL/PF 4 MG/2 ML VIAL IVP ONE (14:00)
[2018-06-28] MEDS ORDERED: AZITHROMYCIN 500 MG in IV D5W 250 ML IV ONE (14:00)
--- NOTE | 2018-06-28 14:00 | NUR ---
EPIC PAGED INFORMATION ANALYST ANDONIAN FOR THIS PATIENT
[2018-06-28] MEDS ORDERED: BUDE10.2 IH (14:07)
[2018-06-28] MEDS ORDERED: HYDR-3980 PO (14:07)
[2018-06-28] MEDS ORDERED: PRED20TA PO (14:07)
[2018-06-28] MEDS ORDERED: MONT10TA22 PO (14:07)
[2018-06-28] MEDS ORDERED: ONDANSETRON HCL/PF 4 MG/2 ML VIAL ONE (14:26)
[2018-06-28 14:36] VITALS: BP 129/75
--- NOTE | 2018-06-28 14:36 | NUR ---
DR LOBO ORDERED MORPHINE 2MG IVP, PER PHARMACY, MORPHINE IS RESERVED FOR CHEST PAIN, PER DR. ANAYA CANCEL ORDER OF MORPHINE 2MG IVP.
--- NOTE | 2018-06-28 14:41 | NUR ---
PT BEING ADMITTED TO [facility] Addendum: 06/28/18 at 1506 by MUNDO Awaiting transfer information from therapeutic case manager
--- NOTE | 2018-06-28 16:01 | NUR ---
PER ADMITTING, MARKETING REPORTING ANALYST LOCATING BED ASSIGNMENT FOR THIS PATIENT.
--- NOTE | 2018-06-28 16:36 | NUR ---
Transfer Info: Accepted By: Dr GONZALEZ Transfer to: [facility] Report to: [phone] [phone] Authorized By: Jad authorization #[id number]
--- NOTE | 2018-06-28 17:07 | NUR ---
CALLED [facility] FOR [facility] TRANSPORT ETA 2029 TRIP #[id number]
--- NOTE | 2018-06-28 17:20 | NUR ---
REPORT GIVEN TO DUANE NICHOLAS AT [facility], TO ROOM 511 ADMITTING DX COPD EXACERBATION
--- NOTE | 2018-06-28 17:46 | NUR ---
UPDATED ETA AMB[facility]Z 1800
--- NOTE | 2018-06-28 18:25 | NUR ---
PT TRANSPORTED BY PRIVATE AMBULANCE VIA GURNEY WITH 2EMTS, LEFT IN STABLE CONDITION, BEDSIDE REPORT GIVEN TO TRANSPORT. PT EN ROUTE TO [facility]
== END 2018-06-28 18:27 | disposition short-term general hospital (02) ==
LOC: ER 13:25
DX: J44.1 Chronic obstructive pulmonary disease with (acute) exacerbation (principal); F17.210 Nicotine dependence, cigarettes, uncomplicated; I10 Essential (primary) hypertension; E11.9 Type 2 diabetes mellitus without complications; Z79.84 Long term (current) use of oral hypoglycemic drugs; Z79.899 Other long term (current) drug therapy; Z79.82 Long term (current) use of aspirin
CPT/HCPCS: 36415; 71045-TC; 80048-TC; 84484-TC; 85025-TC; 87040-TC; J0456; J0696; J2405; J2930; J3475; J7060

== ENCOUNTER 2020-09-07 18:21 | Emergency (ER) | payer OTHER ==
[~2020-09-07] VITALS: Ht 157.5 cm; Wt 63.5 kg
[~2020-09-07 18:21] MED LIST changes: +BUDE10.2 IH; +HYDR-3980 PO; -LAMO150T PO; -LITH300T3 PO; +MONT10TA22 PO; -OMEP20CA10 PO; +OMEP20CA15 PO; -PALI117D IM; +PRED20TA PO; -TIOT18CA3 IH
[2020-09-07 18:37] VITALS: BP 168/100
--- NOTE | 2020-09-07 18:56 | NUR ---
DR ELDER AT BEDSIDE FOR BLOOD DRAW.
--- NOTE | 2020-09-07 19:12 | NUR ---
RT CALLED FOR TREATMENT
[2020-09-07] MEDS ORDERED: ALBU8.5H8 INH (19:15)
[2020-09-07] MEDS ORDERED: FLUT1DIS INH (19:16)
[2020-09-07] MEDS ORDERED: ALBUTEROL FS 2.5 MG/3 ML VIAL.NEB ONE (19:27)
[2020-09-07] MEDS ORDERED: IPRATROPIUM NEB FS 0.5 MG/2.5 ML AMPUL.NEB ONE (19:27)
[2020-09-07] MEDS ORDERED: ALBUTEROL FS 2.5 MG/3 ML VIAL.NEB NEB ONE (19:30)
[2020-09-07] MEDS ORDERED: IPRATROPIUM NEB FS 0.5 MG/2.5 ML AMPUL.NEB NEB ONE (19:30)
== END 2020-09-07 20:09 | disposition home or self-care (01) ==
LOC: ER 18:21
DX: J45.909 Unspecified asthma, uncomplicated (principal); I12.9 Hypertensive chronic kidney disease with stage 1 through stage 4 chronic kidney disease, or unspecified chronic kidney disease; E11.22 Type 2 diabetes mellitus with diabetic chronic kidney disease; N18.9 Chronic kidney disease, unspecified; I25.10 Atherosclerotic heart disease of native coronary artery without angina pectoris; E78.5 Hyperlipidemia, unspecified; F20.9 Schizophrenia, unspecified; F31.9 Bipolar disorder, unspecified; Z98.890 Other specified postprocedural states; Z79.899 Other long term (current) drug therapy; Z79.84 Long term (current) use of oral hypoglycemic drugs; Z79.82 Long term (current) use of aspirin
CPT/HCPCS: 94799-TC

== ENCOUNTER 2021-01-04 13:43 | Inpatient (IN) | payer OTHER ==
[~2021-01-04] VITALS: Ht 157.5 cm; Wt 51.9 kg
[~2021-01-04 13:43] MED LIST changes: -BUDE10.2 IH; +FLUT1BLS INH; -HYDR-3980 PO; -MONT10TA22 PO; -PRED20TA PO; -QUET25TA PO
--- NOTE | 2021-01-04 14:00 | NUR ---
C/O URGENT CARE S/P GLF C/O L HIP PAIN. AMBULATORY AT SCENE. PATIENT A/OX4, BREATHING EVEN AND UNLABORED, NO SOB NOTED.
[2021-01-04] MEDS ORDERED: ACETAMINOPHEN ES 500 MG TABLET PO ONE (15:00)
[2021-01-04] MEDS ORDERED: ACETAMINOPHEN ES 500 MG TABLET ONE (15:02)
--- NOTE | 2021-01-04 15:46 | NUR ---
ORTHO DR. RAMIREZ CONTACTED
--- NOTE | 2021-01-04 15:47 | NUR ---
CALLED [facility] FOR CONSULT
--- NOTE | 2021-01-04 15:48 | NUR ---
MOVE SHEET SUBMITTED. AND CALLED FOR MS BED.
--- NOTE | 2021-01-04 15:48 | NUR ---
CAREGIVER CAME AND GAVE FOOD TO PATIENT WITHOUT CLEARING IT WITH STAFF.
--- NOTE | 2021-01-04 16:03 | NUR ---
[facility] AVILES, [facility] [phone].
[2021-01-04] MEDS ORDERED: GLUC1KIT IM (16:10)
[2021-01-04] MEDS ORDERED: HALO5AMP3 IM (16:10)
[2021-01-04] MEDS ORDERED: RISP0.2515 PO (16:10)
[2021-01-04] MEDS ORDERED: BLOO-668 IN (16:10)
[2021-01-04] MEDS ORDERED: TRAZ-182 PO (16:10)
[2021-01-04] MEDS ORDERED: INSU100V39 SQ (16:10)
--- NOTE | 2021-01-04 16:15 | NUR ---
COVID SWAB SENT
--- NOTE | 2021-01-04 16:47 | NUR ---
[facility] CALLED MARINE EQUIPMENT RESEARCH ENGINEER PAGED.
--- NOTE | 2021-01-04 17:17 | NUR ---
JOHNSON CATHETER FR 16 INSERTED VIA STERILE TECHNIQUE, WITH CLEAR URINE 100ML OUTPUT. PER TO SUN.
[2021-01-04 17:28] LABS: BILIRUBIN,URINE Negative (NEGATIVE); COLOR,URINE YELLOW (YELLOW); LEUKOCYTE ESTERASE ,URINE Small (NEGATIVE); NITRITE, URINE Negative (NEGATIVE); PH,URINE 6.5 (5.0-8.0); PROTEIN,URINE Negative (NEGATIVE); UGLUCOSE 100 MG/DL mg/dL (NEGATIVE); UROBILINOGEN,URINE 0.2 EU/dL (0.2)
[2021-01-04 17:29] LABS: BASOPHILS % (AUTO) 0.3 % (0.0-2.0); EOSINOPHILS % (AUTO) 0.4 % (0.0-6.0); HEMATOCRIT 39 % (33-45); LYMPHOCYTES # (AUTO) 1.5 K/uL (0.8-4.8); LYMPHOCYTES % (AUTO) 12.1 % (20.0-44.0); MEAN CORPUSCULAR HGB CONC 34 g/dl (31.0-36.0); MEAN CORPUSCULAR VOLUME 90 fL (82-100); MONOCYTES # (AUTO) 0.9 K/uL (0.1-1.30); MONOCYTES % (AUTO) 7.5 % (2.0-12.0); NEUTROPHILS % (AUTO) 79.7 % (43.0-81.0); PLATELET COUNT (AUTO) 236 K/uL (150-450); WHITE BLOOD COUNT (AUTO) 12.5 K/uL (4.3-11.0)
[2021-01-04] MEDS ORDERED: MAG HYDROX/AL HYDROX/SIMETH 30 ML UDC PO PRN (17:30)
[2021-01-04] MEDS ORDERED: MAGNESIUM HYDROXIDE 30 ML UDC PO PRN (17:30)
[2021-01-04] MEDS ORDERED: Z GUARD REMEDY 2 OZ OINT TP PRN (17:30)
[2021-01-04] MEDS ORDERED: ONDANSETRON HCL/PF 4 MG/2 ML VIAL IVP PRN (17:30)
[2021-01-04 17:37] LABS: CALCIUM, SERUM 8.6 mg/dL (8.5-10.1); CARBON DIOXIDE 25 mmol/L (21-32); CHLORIDE 103 mmol/L (98-107); GLUCOSE 206 mg/dL (74-106); POTASSIUM 4.2 mmol/L (3.5-5.1); SODIUM SERUM 135 mmol/L (136-145); UREA NITROGEN, BLOOD 14 mg/dL (7-18)
[2021-01-04 17:39] LABS: MAGNESIUM 1.7 mg/dL (1.8-2.4)
[2021-01-04 17:48] LABS: BACTERIA,URINE Many /HPF (None Seen); SQUAMOUS EPITHELIAL CELL,UR Many /HPF (None Seen)
[2021-01-04 17:49] LABS: RBC,URINE 0-2 /HPF (0-2)
[2021-01-04] MEDS ORDERED: CEFTRIAXONE 1 G in IV D5W 50 ML IV SCH (19:00)
[2021-01-04] MEDS ORDERED: QUET50TA PO (19:17)
[2021-01-04] MEDS ORDERED: MORPHINE SULFATE INJ 4 MG/ML DISP.SYRIN ONE (19:54)
[2021-01-04] MEDS: MORPHINE SULFATE INJ 2 MG/ML DISP.SYRIN IV PRN (20:00)
[2021-01-04] MEDS: IV NS 0.9% 1,000 ML IV PRN (20:04)
[2021-01-04 20:31] LABS: CHOLESTEROL 169 mg/dL (<200); HDL CHOLESTEROL 69 mg/dL (40-60); LDL 67 mg/dL (0-99); TRIGLYCERIDES 114 mg/dL (30-150)
[2021-01-04] MEDS ORDERED: MORPHINE SULFATE INJ 2 MG/ML DISP.SYRIN IV ONE (21:00)
[2021-01-04] MEDS ORDERED: ENOXAPARIN SODIUM 30 MG/0.3 ML DISP.SYRIN SQ SCH (21:00)
--- NOTE | 2021-01-04 21:28 | NUR ---
REPORT CALLED TO M/S DUANE IBRAHIM. WILL TRANSPORT PT TO M/S
--- NOTE | 2021-01-04 22:56 | NUR ---
PATIENT TAKEN UP TO ASSIGNED FLOOR FOR SRIKANTH.
[2021-01-04 23:00] VITALS: BP 122/62
--- NOTE | 2021-01-04 23:10 | NUR ---
MS FASHION INTERN NOTE PATIENT ARRIVED ON FLOOR FOR LEFT FEMORAL NECK FRACTURE. PT ALERT/ORIENTED X 3, PT ABLE TO MAKE NEEDS KNOWN. PT ON 2L OF OXYGEN VIA NASAL CANNULA, NO S/S OF DISTRESS OR SOB NOTED, BREATHING EVEN AND UNLABORED. RIGHT AC #20G IV ACCESS INTACT AND FLUSHING WELL. JOHNSON CATHETER INTACT AND DRAINING YELLOW URINE. PT TO BE NPO AT MIDNIGHT. PT BELONGINGS DOCUMENTED AND ACCOUNTED FOR. ORIENTED PATIENT TO ROOM AND HOW TO USE REMOTE AND CALL LIGHT. SAFETY MEASURES IN PLACE: BED LOCKED IN LOWEST POSITION, CALL LIGHT WITHIN REACH, BED ALARM ON. WILL CONTINUE TO MONITOR
[2021-01-04] MEDS ORDERED: CEFTRIAXONE 1 G VIAL ONE (23:22)
[2021-01-04] MEDS: PANTOPRAZOLE 40 MG VIAL IV SCH (23:28)
[2021-01-04] MEDS: TRAZODONE 50 MG TABLET PO SCH (23:30)
--- NOTE | 2021-01-04 23:30 | NUR ---
MS RN NOTE NOTICED THAT THERE WERE MEDS (ROCEPHIN 1 GM, PROTONIX 40 MG, LOVENOX 30 MG, AND TRAZODONE 50 MG) SCHEDULED BEFORE PATIENT ARRIVED ON THE FLOOR THAT WERE NOT GIVEN. CALLED ER TO VERIFY THAT MEDS WERE NOT GIVEN AND THEY WERE NOT PER ED. CALLED PHARMACY TO CHANGE THE SCHEDULED TIME TO GIVE NOW BUT WAS TOLD THAT THEY COULDN'T DO IT. THEREFORE, THAT'S IT WHY THE MEDS ARE SHOWN GIVEN LATE BUT PATIENT DIDN'T ARRIVE TO FLOOR UNTIL 2310. MEDICATIONS GIVEN ORDERED. WILL CONTINUE TO MONITOR
[2021-01-05] MEDS: MORPHINE SULFATE INJ 2 MG/ML DISP.SYRIN IV PRN ×2 (00:30→05:32)
[2021-01-05 06:28] LABS: BASOPHILS % (AUTO) 0.5 % (0.0-2.0); EOSINOPHILS % (AUTO) 0.9 % (0.0-6.0); HEMATOCRIT 39 % (33-45); HEMOGLOBIN 12.9 g/dL (11.5-14.8); LYMPHOCYTES # (AUTO) 1.6 K/uL (0.8-4.8); LYMPHOCYTES % (AUTO) 19.6 % (20.0-44.0); MEAN CORPUSCULAR HGB CONC 33 g/dl (31.0-36.0); MEAN CORPUSCULAR VOLUME 91 fL (82-100); MONOCYTES # (AUTO) 0.7 K/uL (0.1-1.30); MONOCYTES % (AUTO) 8.2 % (2.0-12.0); NEUTROPHILS # (AUTO) 5.6 K/uL (1.8-8.9); NEUTROPHILS % (AUTO) 70.8 % (43.0-81.0); PLATELET COUNT (AUTO) 222 K/uL (150-450); RED BLOOD CELL COUNT(AUTO) 4.25 MIL/uL (4.0-5.2)
[2021-01-05 06:46] LABS: CALCIUM, SERUM 8.3 mg/dL (8.5-10.1); CREATININE 0.8 mg/dL (0.6-1.3); MAGNESIUM 2.1 mg/dL (1.8-2.4); PHOSPHORUS 3.5 mg/dL (2.5-4.9); POTASSIUM 4.5 mmol/L (3.5-5.1)
--- NOTE | 2021-01-05 07:00 | NUR ---
MS RN CLOSING NOTE PT RESTING IN BED, ALERT/ORIENTED X 3, PT ABLE TO MAKE NEEDS KNOWN. PT ON 2L OF OXYGEN VIA NASAL CANNULA, NO S/S OF DISTRESS OR SOB NOTED, BREATHING EVEN AND UNLABORED. RIGHT AC #20G IV RUNNING NS @ 75 ML/HR. JOHNSON CATHETER INTACT WITH OUTPUT OF 2500 ML. PT NPO SINCE MIDNIGHT. MEDICATIONS GIVEN ORDERED. PT NEEDS MET THROUGHOUT SHIFT. SAFETY MEASURES IN PLACE: BED LOCKED IN LOWEST POSITION, CALL LIGHT WITHIN REACH, BED ALARM ON. WILL ENDORSE TO DAY SHIFT NURSE FOR CONTINUITY OF CARE
[2021-01-05 07:02] LABS: THYROID STIMULATING HORMONE 1.164 uIU/mL (0.358-3.74)
[2021-01-05 08:00] VITALS: BP 132/68
[2021-01-05] MEDS: METFORMIN 500 MG TABLET PO SCH ×3 (08:00→18:00)
--- NOTE | 2021-01-05 08:20 | NUR ---
RN OPENING NOTES RECEIVED PATIENT AWAKE IN BED. ALERT AND ORIENTED X 4. NO SIGNS OR SYMPTOMS OF DISTRESS NOTED. TOLERATING WELL ON ROOM AIR. PATIENT IS ABLE TO MAKE NEEDS KNOWN. IV ACCESS RAC#20 PATENT AND INTACT WITH NS @75MLS/HR. SAFETY MEASURES IN PLACE WITH BED AT LOWEST POSITION AND SIDE RAILS UP X 2. CALL LIGHT IS WITHIN REACH. WILL CONTINUE TO MONITOR THROUGHOUT SHIFT.
[2021-01-05] MEDS: risperiDONE 0.25 MG TABLET PO SCH ×3 (08:57→17:00)
[2021-01-05] MEDS: ASPIRIN 81 MG TAB.CHEW PO SCH ×2 (08:57→09:00)
[2021-01-05] MEDS: PANTOPRAZOLE 40 MG VIAL IV SCH (08:57)
[2021-01-05] MEDS: LOSARTAN POTASSIUM 50 MG TABLET PO SCH (08:58)
[2021-01-05] MEDS ORDERED: BACITRACIN 50000 UNITS/VIAL ONE (11:19)
[2021-01-05] MEDS ORDERED: ANESTHESIA TRAY IN PYXIS 1 EA TRAY MC ONE (11:19)
[2021-01-05] MEDS ORDERED: BUPIVACAINE 0.5 % PF 150 MG/30 ML VIAL ONE (11:19)
[2021-01-05 16:00] VITALS: BP 142/72
[2021-01-05] MEDS ORDERED: FENTANYL PF 100MCG/2ML AMPUL ONE ×2 (16:39→17:47)
--- NOTE | 2021-01-05 17:24 | NUR ---
MS RN NOTES PATIENT WAS PICKED UP BY LASHAE ZEPEDA AND SURGERY STAFF TO OR WITH STABLE VITAL SIGNS
[2021-01-05] MEDS ORDERED: CEFTRIAXONE 1 G in IV D5W 50 ML IV SCH (18:00)
[2021-01-05] MEDS: QUETIAPINE FUMARATE 25 MG TABLET PO SCH (18:00)
--- NOTE | 2021-01-05 18:39 | NUR ---
MS RN NOTES PATIENT RETURNED FROM OR BY SHANDA SCHMIDT AND NOA OR NURSE WITH STABLE VITAL SIGNS. BP 156/78, HR 100, TEMP 98, O2 SAT 95%.
--- NOTE | 2021-01-05 19:08 | NUR ---
CONTINUITY OF CARE Patient in bed, A/O x3, feels hungry. Left hip incision covered with surgical gauze, s/p ORIF left hip today. No c/o pain, ice pack to lateral hip. Fall precaution maintained.
--- NOTE | 2021-01-05 19:51 | NUR ---
RN CLOSING NOTES PATIENT IS AWAKE IN BED. ALERT AND ORIENTED X 3. NO SIGNS OR SYMPTOMS OF DISTRESS NOTED. PATIENT IS ON NC 2L TOLERATING WELL WITH O2 SAT 98%. S ABLE TO MAKE NEEDS KNOWN. IV ACCESS RAC#20 PATENT AND INTACT WITH NS @75MLS/HR. NO SIGNS OR SYMPTOMS OF INFECTION NOTED ON SURGICAL SITE. AFEBRILE. RECEIVED ORDERS. ORDERS READ BACK AND CARRIED OUT. SAFETY MEASURES IN PLACE WITH BED AT LOWEST POSITION AND SIDE RAILS UP X 2. CALL LIGHT IS WITHIN REACH. WILL ENDORSE CONTINUITY OF CARE TO ONCOMING SHIFT.
[2021-01-05 20:00] VITALS: BP 114/51
[2021-01-05] MEDS: IV NS 0.9% 1,000 ML IV PRN (20:41)
[2021-01-05] MEDS: TRAZODONE 50 MG TABLET PO SCH (22:20)
[2021-01-06] MEDS: CEFAZOLIN 2 GM in IV D5W 100 ML IV SCH ×3 (01:05→17:42)
--- NOTE | 2021-01-06 06:19 | NUR ---
END OF SHIFT REPORT Patient is A/O x2. On supplemental Oxygen. Ongoing IVF. IV Abx Afebrile. Left lateral hip dressing intact, no c/o pain. Plan for PT/OT today. WBAT LLE per Ortho. Will endorse to oncoming RN. Fall precaution maintained.
[2021-01-06 06:38] LABS: BASOPHILS % (AUTO) 0.2 % (0.0-2.0); EOSINOPHILS % (AUTO) 0.7 % (0.0-6.0); HEMATOCRIT 35 % (33-45); HEMOGLOBIN 11.9 g/dL (11.5-14.8); LYMPHOCYTES # (AUTO) 0.7 K/uL (0.8-4.8); LYMPHOCYTES % (AUTO) 10.2 % (20.0-44.0); MEAN CORPUSCULAR HGB CONC 34 g/dl (31.0-36.0); MEAN CORPUSCULAR VOLUME 92 fL (82-100); MONOCYTES # (AUTO) 0.6 K/uL (0.1-1.30); MONOCYTES % (AUTO) 7.7 % (2.0-12.0); NEUTROPHILS # (AUTO) 5.9 K/uL (1.8-8.9); NEUTROPHILS % (AUTO) 81.2 % (43.0-81.0); PLATELET COUNT (AUTO) 201 K/uL (150-450); RED BLOOD CELL COUNT(AUTO) 3.87 MIL/uL (4.0-5.2); WHITE BLOOD COUNT (AUTO) 7.3 K/uL (4.3-11.0)
[2021-01-06 07:03] LABS: MAGNESIUM 2.1 mg/dL (1.8-2.4); POTASSIUM 4.5 mmol/L (3.5-5.1)
--- NOTE | 2021-01-06 07:11 | NUR ---
CRITICAL VALUE 0708 Lab reported for Critical value Glucose 379. Endorsed to DUANE Blancas, will notify
[2021-01-06] MEDS ORDERED: DEXTROSE 50%-WATER 50 ML DISP.SYRIN IV PRN (07:30)
--- NOTE | 2021-01-06 07:30 | NUR ---
RN OPENING NOTE PT AWAKE IN BED RESTING. ON 2L NC WITH NO SOB OR RESPIRATORY DISTRESS PRESENT. A/O X 2 AND ALBANIAN SPEAKING. COMPLAINT OF PAIN 8/10 PRESENT ON L HIP. PAIN MEDS GIVEN PER PROTOCOL. NO COMPLAINT OF NAUSEA. NO CASSEROLE PREPARER PRESENT. NO EDEMA PRESENT. F/C PRESENT AND DRAINING WELL. SACRAL REDNESS PRESENT, WOUND PICTURES TAKEN AND WOUND CARE GIVEN. IV PRESENT ON R AC 20G AND FLUSHES WELL. NS RUNNING AT 75 ML/HR. LABS AND ORDERS REVIEWED. SAFETY MEASURES IN PLACE. SIDE RAILS RAISED. BED LOWERED. CALL LIGHT WITHIN REACH. WILL CONTINUE TO MONITOR.
--- NOTE | 2021-01-06 07:34 | NUR ---
RN NOTE CRITICAL LAB REPORTED TO ROBERTO. PT STARTED ON ACHS ACCUCHECK AND INSULIN MILD SLIDING SCALE. FINGERSTICK BG OF 300, INSULIN 6 U TO BE GIVEN TO PT ONCE DELIVERED BY PHARMACY. LANTUS TO BE STARTED PER MD ORDER WELL.
[2021-01-06] MEDS: BLOOD SUGAR DIAGNOSTIC 1 EACH STRIP IN SCH ×4 (07:41→22:07)
[2021-01-06 08:00] VITALS: BP 135/59
[2021-01-06] MEDS: METFORMIN 500 MG TABLET PO SCH ×2 (08:00→17:35)
[2021-01-06] MEDS: MORPHINE SULFATE INJ 2 MG/ML DISP.SYRIN IV PRN ×3 (08:09→20:16)
[2021-01-06] MEDS: risperiDONE 0.25 MG TABLET PO SCH ×2 (08:10→17:34)
[2021-01-06] MEDS: ASPIRIN 81 MG TAB.CHEW PO SCH (08:10)
[2021-01-06] MEDS: PANTOPRAZOLE 40 MG VIAL IV SCH (08:10)
[2021-01-06] MEDS: LOSARTAN POTASSIUM 50 MG TABLET PO SCH (08:11)
[2021-01-06] MEDS: ENOXAPARIN SODIUM 40 MG/0.4 ML DISP.SYRIN SQ SCH (08:20)
[2021-01-06] MEDS: INSULIN REGULAR, HUMAN 100 UNIT/ML 3 ML VIAL SQ PRN ×2 (11:59→21:59)
--- NOTE | 2021-01-06 12:00 | NUR ---
RN NOTE PT REFUSED INSULIN FOR BG OF 288. STATES THAT SHE'S OKAY BECAUSE IT WENT DOWN. EDUCATED PT ON RISKS AND BENEFITS OF MEDICATION REFUSAL. PT IS OKAY TO TAKE INSULIN AT 1800.
[2021-01-06 16:00] VITALS: BP 105/51
[2021-01-06] MEDS: QUETIAPINE FUMARATE 25 MG TABLET PO SCH (17:35)
[2021-01-06] MEDS: ACETAMINOPHEN 325 MG TABLET PO PRN (17:35)
--- NOTE | 2021-01-06 18:42 | NUR ---
RN CLOSING NOTE PT AWAKE IN BED RESTING. ON RA WITH NO SOB OR RESPIRATORY DISTRESS PRESENT. A/O X 2 AND GEORGIAN SPEAKING. NO COMPLAINT OF PAIN. NO COMPLAINT OF NAUSEA. NO WINE CONSULTANT PRESENT. NO EDEMA PRESENT. F/C PRESENT AND DRAINING WELL. SACRAL REDNESS PRESENT, WOUND PICTURES TAKEN AND WOUND CARE GIVEN. IV PRESENT ON R AC 20G AND FLUSHES WELL. NS RUNNING AT 75 ML/HR. LABS AND ORDERS REVIEWED. ROUTINE MEDS GIVEN. SAFETY MEASURES IN PLACE. SIDE RAILS RAISED. BED LOWERED. CALL LIGHT WITHIN REACH. WILL GIVE REPORT TO NIGHT NURSE FOR SRIKANTH.
[2021-01-06 20:00] VITALS: BP 121/54
--- NOTE | 2021-01-06 20:00 | NUR ---
RN NOTES ALERT AND ORIENTED X3, FORGETFUL, ROOM AIR, COMPLAINING OF PAIN OF LEFT HIP, S/P LEFT HIP ORIF, WILL GIVE MORPHINE, JOHNSON CATHETER DRAINING, DRESSING WITH DRIED DRAINAGE. WILL CONTINUE TO MONITOR.
[2021-01-06] MEDS: INSULIN GLARGINE, 100 UNIT/ML CARTRIDGE SQ SCH (22:00)
[2021-01-06] MEDS: TRAZODONE 50 MG TABLET PO SCH (22:07)
[2021-01-06 22:41] VITALS: BP 121/54
[2021-01-07] MEDS: INSULIN REGULAR, HUMAN 100 UNIT/ML 3 ML VIAL SQ PRN ×4 (06:46→21:56)
[2021-01-07] MEDS: BLOOD SUGAR DIAGNOSTIC 1 EACH STRIP IN SCH ×4 (06:49→21:57)
--- NOTE | 2021-01-07 07:10 | NUR ---
RN OPENING NOTE RECEIVED PATIENT IN BED. A/O X2-3. ON ROOM AIR, NO SOB NOTED. IN NO APPARENT DISTRESS. DENIES ANY PAIN OR DISCOMFORT AT THIS TIME. IV ACCESS ON R WRIST #22 G, INTACT AND PATENT. JOHNSON CATHETER IN PLACE, DRAINING YELLOW URINE. SAFETY MEASURES MAINTAINED. BED IN LOWEST POSITION, BRAKES LOCKED. SIDE RAILS UP X2. CALL LIGHT WITHIN REACH. WILL CONTINUE PLAN OF CARE.
--- NOTE | 2021-01-07 07:14 | NUR ---
Alert/oriented x3, forgetful, stable on room air, left hip dressing with dried drainage, given Morphine 4 mg IV x1 with adequate relief, Accucheck ACHS, Lantus 12 units, good appetite, follow up when to DC yu catheter, continue PT, for discharge planning to ARU vs SNF.
[2021-01-07 07:48] LABS: BASOPHILS % (AUTO) 0.3 % (0.0-2.0); EOSINOPHILS % (AUTO) 0.8 % (0.0-6.0); HEMATOCRIT 31 % (33-45); HEMOGLOBIN 10.8 g/dL (11.5-14.8); LYMPHOCYTES # (AUTO) 1.2 K/uL (0.8-4.8); LYMPHOCYTES % (AUTO) 14.5 % (20.0-44.0); MEAN CORPUSCULAR HGB CONC 34 g/dl (31.0-36.0); MEAN CORPUSCULAR VOLUME 90 fL (82-100); MONOCYTES # (AUTO) 0.7 K/uL (0.1-1.30); MONOCYTES % (AUTO) 8.8 % (2.0-12.0); NEUTROPHILS # (AUTO) 6.3 K/uL (1.8-8.9); NEUTROPHILS % (AUTO) 75.6 % (43.0-81.0); PLATELET COUNT (AUTO) 186 K/uL (150-450); RED BLOOD CELL COUNT(AUTO) 3.49 MIL/uL (4.0-5.2); WHITE BLOOD COUNT (AUTO) 8.3 K/uL (4.3-11.0)
[2021-01-07 08:00] VITALS: BP 108/43
[2021-01-07 08:00] LABS: POTASSIUM 4.3 mmol/L (3.5-5.1)
[2021-01-07] MEDS: ENOXAPARIN SODIUM 40 MG/0.4 ML DISP.SYRIN SQ SCH (08:14)
[2021-01-07] MEDS: risperiDONE 0.25 MG TABLET PO SCH ×2 (08:15→16:04)
[2021-01-07] MEDS: LOSARTAN POTASSIUM 50 MG TABLET PO SCH (08:15)
[2021-01-07] MEDS: ASPIRIN 81 MG TAB.CHEW PO SCH (08:16)
[2021-01-07] MEDS: PANTOPRAZOLE 40 MG TABLET.DR PO SCH (08:16)
[2021-01-07] MEDS: METFORMIN 500 MG TABLET PO SCH ×2 (08:16→17:11)
--- NOTE | 2021-01-07 08:30 | NUR ---
RN NOTES WAS SUPPOSED TO PULL OUT 4 TABLETS OF RISPERIDONE BUT ONLY PULLED OUT 2. OPENED OMNICELL AGAIN TO PULL OUT 2 TABLETS.
[2021-01-07 16:00] VITALS: BP 115/51
[2021-01-07] MEDS: QUETIAPINE FUMARATE 25 MG TABLET PO SCH (17:11)
--- NOTE | 2021-01-07 18:11 | NUR ---
RN CLOSING NOTE PATIENT RESTING IN BED. A/O X2-3. ON ROOM AIR, NO SOB NOTED. IN NO APPARENT DISTRESS. NO REPORTS OF ANY PAIN OR DISCOMFORT AT THIS TIME. IV ACCESS ON R WRIST #22 G, INTACT AND PATENT. JOHNSON CATHETER IN PLACE, DRAINING YELLOW URINE. ALL DUE MEDS GIVEN ORDERED. ALL NEEDS HAVE BEEN MET AND ATTENDED. INSULIN GIVEN PER SS. SAFETY MEASURES MAINTAINED. BED IN LOWEST POSITION, BRAKES LOCKED. SIDE RAILS UP X2. CALL LIGHT WITHIN REACH. WILL ENDORSE CONTINUITY OF CARE TO ONCOMING SHIFT.
[2021-01-07 20:00] VITALS: BP 130/54
--- NOTE | 2021-01-07 20:00 | NUR ---
RN NOTES RECEIVED PATIENT IN BED, ASLEEP, EASILY AROUSEABLE, STABLE ON ROOM AIR, NOT IN APPARENT DISTRESS, LEFT HIP ORIF, DRESSING WITH DRIED DRAINAGE, JOHNSON CATHETER DRAINING, CLEAR AND YELLOW URINE. KEPT SAFE, WILL CONTINUE TO MONITOR.
[2021-01-07 20:03] VITALS: BP 130/54
[2021-01-07] MEDS: TRAZODONE 50 MG TABLET PO SCH (21:54)
[2021-01-07] MEDS: INSULIN GLARGINE, 100 UNIT/ML CARTRIDGE SQ SCH (21:56)
[2021-01-07] MEDS: IV NS 0.9% 1,000 ML IV PRN (22:18)
--- NOTE | 2021-01-08 05:02 | NUR ---
RN NOTES JOHNSON CATHETER DISCONTINUED, MONITOR FOR URINARY RETENTION
[2021-01-08] MEDS: INSULIN REGULAR, HUMAN 100 UNIT/ML 3 ML VIAL SQ PRN ×3 (06:32→17:02)
[2021-01-08] MEDS: BLOOD SUGAR DIAGNOSTIC 1 EACH STRIP IN SCH ×4 (06:34→22:08)
--- NOTE | 2021-01-08 06:49 | NUR ---
ALERT/ORIENTED X3, ROOM AIR, NO COMPLAIN OF PAIN, LEFT HIP SX SITE, DRESSING INTACT, JOHNSON CATHETER REMOVED, CLEARED BY ORTHO FOR DISCHARGE. PLANNED DISCHARGE TO ARU AT [facility].
--- NOTE | 2021-01-08 07:10 | NUR ---
RN OPENING NOTE RECEIVED PATIENT IN BED. A/O X2-3. ON ROOM AIR, NO SOB NOTED. IN NO APPARENT DISTRESS. DENIES ANY PAIN OR DISCOMFORT AT THIS TIME. IV ACCESS ON R WRIST #22 G, INTACT AND PATENT. SAFETY MEASURES MAINTAINED. BED IN LOWEST POSITION, BRAKES LOCKED. SIDE RAILS UP X2. CALL LIGHT WITHIN REACH. WILL CONTINUE PLAN OF CARE.
[2021-01-08 07:38] LABS: CALCIUM, SERUM 7.9 mg/dL (8.5-10.1); CREATININE 1.1 mg/dL (0.6-1.3); MAGNESIUM 2.3 mg/dL (1.8-2.4); PHOSPHORUS 2.8 mg/dL (2.5-4.9); POTASSIUM 4.2 mmol/L (3.5-5.1)
[2021-01-08 08:00] VITALS: BP 141/59
[2021-01-08] MEDS: METFORMIN 500 MG TABLET PO SCH ×3 (08:00→17:03)
[2021-01-08] MEDS: PANTOPRAZOLE 40 MG TABLET.DR PO SCH (08:33)
[2021-01-08] MEDS: risperiDONE 0.25 MG TABLET PO SCH ×2 (08:33→16:52)
[2021-01-08] MEDS: ASPIRIN 81 MG TAB.CHEW PO SCH (08:33)
[2021-01-08] MEDS: LOSARTAN POTASSIUM 50 MG TABLET PO SCH (08:33)
[2021-01-08] MEDS: ENOXAPARIN SODIUM 40 MG/0.4 ML DISP.SYRIN SQ SCH (08:34)
[2021-01-08] MEDS: IV NS 0.9% 1,000 ML IV PRN (14:19)
[2021-01-08] MEDS: QUETIAPINE FUMARATE 25 MG TABLET PO SCH (17:03)
--- NOTE | 2021-01-08 18:24 | NUR ---
RN CLOSING NOTE PATIENT IN BED. A/O X2-3. ON ROOM AIR, NO SOB NOTED. IN NO APPARENT DISTRESS. NO REPORTS OF PAIN OR DISCOMFORT AT THIS TIME. IV ACCESS ON R WRIST #22 G, NS X 75 ML/HR, INTACT AND PATENT. DUE MEDS GIVEN ORDERED. ALL NEEDS HAVE BEEN MET AND ATTENDED. SAFETY MEASURES MAINTAINED. BED IN LOWEST POSITION, BRAKES LOCKED. SIDE RAILS UP X2. KEPT CALL LIGHT WITHIN REACH. WILL ENDORSE CONTINUITY OF CARE TO ONCOMING SHIFT.
--- NOTE | 2021-01-08 19:00 | NUR ---
MS RN OPENING NOTES RECEIVED PT AWAKE IN BED, EATING AT THIS TIME. A/O X3. ABLE TO VERBALIZE NEEDS. NO S/O OF ANY ACUTE DISTRESS NOTED, DENIES PAIN AT THIS TIME. PT ON RA, IV ACCESS IN R WRIST G #22 INTACT, PATENT AND FLUSHING WELL. SAFETY PRECAUTIONS IN PLACE AND MAINTAINED AT ALL TIMES. BED IN LOWEST LOCKED POSITION, HOB ELEVATED, SIDE RAILS UP X2, CALL LIGHT AND TABLE WITHIN REACH. WILL CONTINUE TO MONITOR
[2021-01-08 20:00] VITALS: BP 148/66
[2021-01-08] MEDS: TRAZODONE 50 MG TABLET PO SCH (21:48)
[2021-01-08] MEDS: ACETAMINOPHEN 325 MG TABLET PO PRN (21:49)
--- NOTE | 2021-01-08 21:49 | NUR ---
PT C/O ACHING, 4/10 PAIN ON HER HIPS, VS WNL PER PT REQUEST TYLENOL 650MG PO Q6HR PRN ADMINISTERED PER ORDER. WILL CONTINUE TO MONITOR
[2021-01-08] MEDS: INSULIN GLARGINE, 100 UNIT/ML CARTRIDGE SQ SCH (22:15)
--- NOTE | 2021-01-08 22:15 | NUR ---
BS 143. LANTUS 12 UNITS ADMINISTERED PER ORDER.
[2021-01-09] MEDS: IV NS 0.9% 1,000 ML IV PRN (05:33)
[2021-01-09] MEDS: MORPHINE SULFATE INJ 2 MG/ML DISP.SYRIN IV PRN ×2 (05:43→20:27)
--- NOTE | 2021-01-09 05:43 | NUR ---
PT C/O ACHING, 4/10 PAIN ON HER HIPS, VS WNL PER PT REQUEST MORPHINE 4MG/2ML IV Q4H PRN ADMINISTERED PER ORDER. WILL CONTINUE TO MONITOR
--- NOTE | 2021-01-09 06:00 | NUR ---
PT AWAKE IN BED . NO RESPIRATORY DISTRESS OR DISCOMFORT. WILL ENDORSE TO DAY SHIFT RN FOR SRIKANTH.
[2021-01-09 06:26] LABS: BASOPHILS % (AUTO) 0.6 % (0.0-2.0); EOSINOPHILS % (AUTO) 2.4 % (0.0-6.0); HEMATOCRIT 34 % (33-45); HEMOGLOBIN 11.4 g/dL (11.5-14.8); LYMPHOCYTES # (AUTO) 1.6 K/uL (0.8-4.8); LYMPHOCYTES % (AUTO) 23.8 % (20.0-44.0); MEAN CORPUSCULAR HGB CONC 34 g/dl (31.0-36.0); MEAN CORPUSCULAR VOLUME 92 fL (82-100); MONOCYTES # (AUTO) 0.6 K/uL (0.1-1.30); MONOCYTES % (AUTO) 9.3 % (2.0-12.0); NEUTROPHILS # (AUTO) 4.3 K/uL (1.8-8.9); NEUTROPHILS % (AUTO) 63.9 % (43.0-81.0); PLATELET COUNT (AUTO) 277 K/uL (150-450); RED BLOOD CELL COUNT(AUTO) 3.71 MIL/uL (4.0-5.2); WHITE BLOOD COUNT (AUTO) 6.7 K/uL (4.3-11.0)
[2021-01-09] MEDS: BLOOD SUGAR DIAGNOSTIC 1 EACH STRIP IN SCH ×4 (06:31→22:01)
--- NOTE | 2021-01-09 06:31 | NUR ---
BS 91. NO INSULIN COVERAGE PER SLIDING SCALE
[2021-01-09 06:49] LABS: CALCIUM, SERUM 8.3 mg/dL (8.5-10.1); CREATININE 0.8 mg/dL (0.6-1.3); POTASSIUM 3.9 mmol/L (3.5-5.1)
--- NOTE | 2021-01-09 07:32 | NUR ---
MS RN OPENING NOTE RECEIVED PATIENT IN BED. A/O X2-3. BREATHING EVENLY AND NONLABORED ON ROOM AIR, NO SOB NOTED. IN NO APPARENT DISTRESS. DENIES ANY PAIN OR DISCOMFORT AT THIS TIME. IV ACCESS ON R WRIST #22 G, INTACT AND PATENT RUNNING NS @ 75 ML/HR,. SAFETY MEASURES MAINTAINED. BED IN LOWEST POSITION, BRAKES LOCKED. SIDE RAILS UP X2. CALL LIGHT WITHIN REACH. WILL CONTINUE TO MONITOR
[2021-01-09 08:00] VITALS: BP 141/64
[2021-01-09] MEDS: LOSARTAN POTASSIUM 50 MG TABLET PO SCH (08:47)
[2021-01-09] MEDS: METFORMIN 500 MG TABLET PO SCH ×2 (08:47→17:11)
[2021-01-09] MEDS: ASPIRIN 81 MG TAB.CHEW PO SCH (08:47)
[2021-01-09] MEDS: risperiDONE 0.25 MG TABLET PO SCH ×2 (08:47→17:12)
[2021-01-09] MEDS: ENOXAPARIN SODIUM 40 MG/0.4 ML DISP.SYRIN SQ SCH (08:49)
[2021-01-09] MEDS: PANTOPRAZOLE 40 MG TABLET.DR PO SCH (08:59)
[2021-01-09] MEDS: INSULIN REGULAR, HUMAN 100 UNIT/ML 3 ML VIAL SQ PRN ×3 (11:20→22:00)
[2021-01-09 16:00] VITALS: BP 110/49
[2021-01-09] MEDS: QUETIAPINE FUMARATE 25 MG TABLET PO SCH (17:12)
--- NOTE | 2021-01-09 18:25 | NUR ---
RN CLOSING NOTE PATIENT IN BED. A/O X2-3. PATIENT IS BREATHING EVENLY AND NONLABORED ON ROOM AIR, NO SOB NOTED. IN NO APPARENT DISTRESS. NO REPORTS OF PAIN OR DISCOMFORT AT THIS TIME. IV ACCESS ON R WRIST #22 G, NS X 75 ML/HR, INTACT AND PATENT. DUE MEDS GIVEN ORDERED. ALL NEEDS HAVE BEEN MET AND ATTENDED. DISCHARGE ORDER IN PLACE AWAITING PLACEMENT. QUESTIONS ANSWERED AT THIS TIME. SAFETY MEASURES MAINTAINED. BED IN LOWEST POSITION, BRAKES LOCKED. SIDE RAILS UP X2. KEPT CALL LIGHT WITHIN REACH. WILL ENDORSE CONTINUITY OF CARE TO ONCOMING SHIFT.
[2021-01-09 20:00] VITALS: BP 112/58
--- NOTE | 2021-01-09 20:00 | NUR ---
MS RN OPENING NOTES PATIENT RESTING IN BED, ALERT/ORIENTED X 2, PT ABLE TO MAKE NEEDS KNOWN. PT STABLE ON RA, NO S/S OF DISTRESS OR SOB NOTED, BREATHING EVEN AND UNLABORED. RIGHT WRIST #22G IV ACCESS INTACT AND FLUSHING WELL, RUNNING NS @ 75 ML/HR. SAFETY MEASURES IN PLACE, CALL LIGHT AND TABLE WITH REACH, BED LOCKED IN LOWEST POSITION, SIDE RAILS UP X 2, BED ALARM ON. WILL CONTINUE TO MONITOR THROUGHOUT SHIFT.
--- NOTE | 2021-01-09 20:27 | NUR ---
MS RN NOTES PATIENT REPORTING 8/10 HIP PAIN, REQUESTED PAIN MEDICATION. IV MORPHINE 4 MG Q4H GIVEN ORDERED. WILL CONTINUE TO MONITOR
[2021-01-09] MEDS: TRAZODONE 50 MG TABLET PO SCH (21:58)
[2021-01-09] MEDS: INSULIN GLARGINE, 100 UNIT/ML CARTRIDGE SQ SCH (21:59)
[2021-01-10 08:00] VITALS: BP 111/58
[2021-01-10] MEDS: BLOOD SUGAR DIAGNOSTIC 1 EACH STRIP IN SCH (08:04)
[2021-01-10] MEDS: risperiDONE 0.25 MG TABLET PO SCH (08:04)
[2021-01-10 08:05] VITALS: BP 111/58
[2021-01-10] MEDS: ASPIRIN 81 MG TAB.CHEW PO SCH (08:05)
[2021-01-10] MEDS: PANTOPRAZOLE 40 MG TABLET.DR PO SCH (08:05)
[2021-01-10] MEDS: LOSARTAN POTASSIUM 50 MG TABLET PO SCH (08:05)
[2021-01-10] MEDS: METFORMIN 500 MG TABLET PO SCH (08:05)
[2021-01-10] MEDS: ENOXAPARIN SODIUM 40 MG/0.4 ML DISP.SYRIN SQ SCH (08:12)
== END 2021-01-10 13:30 | DRG 481 ==
LOC: ER 13:46 → MED 22:17
PROVIDERS: ADMIT Nurse Practitioner Acute Care; ATTEND Nurse Practitioner Acute Care
PROC: 0QS704Z Reposition Left Upper Femur with Internal Fixation Device, Open Approach (ICD-10-PCS; principal; 2021-01-04)
DX: S72.012A Unspecified intracapsular fracture of left femur, initial encounter for closed fracture (principal); N39.0 Urinary tract infection, site not specified; Y92.9 Unspecified place or not applicable; F03.90 Unspecified dementia, unspecified severity, without behavioral disturbance, psychotic disturbance, mood disturbance, and anxiety; E11.9 Type 2 diabetes mellitus without complications; F31.9 Bipolar disorder, unspecified; W18.30XA Fall on same level, unspecified, initial encounter; F20.9 Schizophrenia, unspecified; I10 Essential (primary) hypertension; J44.9 Chronic obstructive pulmonary disease, unspecified; R35.0 Frequency of micturition; Z91.018 Allergy to other foods; Z79.4 Long term (current) use of insulin; Z79.51 Long term (current) use of inhaled steroids; Z79.82 Long term (current) use of aspirin; Z79.899 Other long term (current) drug therapy; E78.5 Hyperlipidemia, unspecified; E11.65 Type 2 diabetes mellitus with hyperglycemia; F01.50 Vascular dementia, unspecified severity, without behavioral disturbance, psychotic disturbance, mood disturbance, and anxiety; K21.9 Gastro-esophageal reflux disease without esophagitis; E83.42 Hypomagnesemia; F17.200 Nicotine dependence, unspecified, uncomplicated; B96.89 Other specified bacterial agents as the cause of diseases classified elsewhere; Z86.73 Personal history of transient ischemic attack (TIA), and cerebral infarction without residual deficits
CPT/HCPCS: 36415; 73502; 73700-TC; 80048-TC; 80061-TC; 81001; 82962-TC; 83735-TC; 84100-TC; 84439-TC; 84443-TC; 84484-TC; 85025-TC; 87081-TC; 87086-TC; 93307-TC; 97112-TC; 97116-TC; 97530-TC; A6209; C1713; C9113; C9803; G0378; J0690; J0696; J1650; J1815; J1885; J2270; J2405; J2704; J3010; J3490; J7030; J7060

== ENCOUNTER 2021-12-21 18:11 | Emergency (ER) | payer OTHER ==
[~2021-12-21] VITALS: Ht 154.9 cm; Wt 59.0 kg
[~2021-12-21 18:11] MED LIST changes: -ATOR10TA PO; +BLOO-668 IN; -FLUT1BLS INH; +GLUC1KIT IM; +HALO5AMP3 IM; +INSU100V39 SQ; -OMEP20CA15 PO; +QUET50TA PO; +RISP0.2515 PO; -SITA50TA PO; +TRAZ-182 PO
--- NOTE | 2021-12-21 18:15 | NUR ---
RECIVED PT 76 YRS FEMALE CAME BY JEMAL s/p fell down yesterday pain on lt hip able to move her leg no weekness no diformity
--- NOTE | 2021-12-21 18:40 | NUR ---
SEEN BY DR. GOLD
--- NOTE | 2021-12-21 19:00 | NUR ---
XRAY DONE AT BED SIDE
--- NOTE | 2021-12-21 19:43 | NUR ---
HAND OFF TO ASHLY ZEPEDA
--- NOTE | 2021-12-21 20:26 | NUR ---
[facility] CALLED FOR BLS BACK TO ADDRESS [facility] ETA 90 MIN PER ADRIAN
[2021-12-21 22:10] VITALS: BP 123/60
--- NOTE | 2021-12-21 22:10 | NUR ---
[facility] AT BEDSIDE FOR PATIENT TRANSFER BACK TO FACILITY
== END 2021-12-21 22:11 | disposition home or self-care (01) ==
LOC: ER 18:14
DX: S70.02XA Contusion of left hip, initial encounter (principal); E78.5 Hyperlipidemia, unspecified; E11.9 Type 2 diabetes mellitus without complications; K21.9 Gastro-esophageal reflux disease without esophagitis; F17.200 Nicotine dependence, unspecified, uncomplicated; Z91.018 Allergy to other foods; Z79.899 Other long term (current) drug therapy; Z79.4 Long term (current) use of insulin; Z79.84 Long term (current) use of oral hypoglycemic drugs; Z79.82 Long term (current) use of aspirin; W01.0XXA Fall on same level from slipping, tripping and stumbling without subsequent striking against object, initial encounter; Y93.89 Activity, other specified; Y92.89 Other specified places as the place of occurrence of the external cause; Y99.8 Other external cause status
CPT/HCPCS: 72110-TC; 72170-TC; 73502

== ENCOUNTER 2021-12-26 14:13 | Inpatient (IN) | payer OTHER ==
[~2021-12-26] VITALS: Ht 157.5 cm; Wt 56.7 kg
--- NOTE | 2021-12-26 14:55 | NUR ---
[employer] [phone]
[2021-12-26] MEDS ORDERED: IV NS 0.9% 1,000 ML BAG IV ONE (15:00)
[2021-12-26 15:22] LABS: BASOPHILS % (AUTO) 0.5 % (0.0-2.0); EOSINOPHILS % (AUTO) 1.8 % (0.0-6.0); HEMATOCRIT 36 % (33-45); HEMOGLOBIN 11.7 g/dL (11.5-14.8); LYMPHOCYTES # (AUTO) 1.3 K/uL (0.8-4.8); LYMPHOCYTES % (AUTO) 24.2 % (20.0-44.0); MEAN CORPUSCULAR HGB CONC 32 g/dl (31.0-36.0); MEAN CORPUSCULAR VOLUME 90 fL (82-100); MONOCYTES # (AUTO) 0.7 K/uL (0.1-1.30); MONOCYTES % (AUTO) 12.4 % (2.0-12.0); NEUTROPHILS # (AUTO) 3.4 K/uL (1.8-8.9); NEUTROPHILS % (AUTO) 61.1 % (43.0-81.0); PLATELET COUNT (AUTO) 204 K/uL (150-450); RED BLOOD CELL COUNT(AUTO) 4.02 MIL/uL (4.0-5.2); WHITE BLOOD COUNT (AUTO) 5.6 K/uL (4.3-11.0)
[2021-12-26 15:59] LABS: CALCIUM, SERUM 8.3 mg/dL (8.5-10.1); CARBON DIOXIDE 22 mmol/L (21-32); CHLORIDE 106 mmol/L (98-107); CREATININE 1.3 mg/dL (0.6-1.3); GLUCOSE 155 mg/dL (74-106); POTASSIUM 3.7 mmol/L (3.5-5.1); SERUM AMMONIA 22 umol/L (11-32); SODIUM SERUM 137 mmol/L (136-145); UREA NITROGEN, BLOOD 27 mg/dL (7-18)
--- NOTE | 2021-12-26 16:00 | NUR ---
Dozing-easily awakened. VSS. A[[ears comfortable
[2021-12-26 16:09] LABS: ALANINE AMINOTRANSFERASE 26 U/L (12-78); ALBUMIN 2.7 g/dL (3.4-5.0); ALCOHOL, BLOOD < 3 mg/dL (0-0); ALKALINE PHOSPHATASE 61 U/L (46-116); ASPARTATE AMINOTRANSFERASE 118 U/L (15-37); BILIRUBIN,DIRECT 0.2 mg/dL (0.0-0.2); BILIRUBIN,TOTAL 0.6 mg/dL (0.2-1.0); TOTAL PROTEIN, SERUM 6.4 g/dL (6.4-8.2)
[2021-12-26 16:12] LABS: THYROID STIMULATING HORMONE 0.681 uIU/mL (0.358-3.74)
[2021-12-26] MEDS ORDERED: ERGO500093 PO (16:52)
[2021-12-26] MEDS ORDERED: LISI10TA29 PO (16:52)
[2021-12-26] MEDS ORDERED: BLOO-668 IN (16:52)
[2021-12-26] MEDS ORDERED: SITA25TA PO (16:52)
[2021-12-26] MEDS ORDERED: ROMO210S SQ (16:52)
--- NOTE | 2021-12-26 17:21 | NUR ---
Status quo NO obvious distress. Await admission
[2021-12-26 19:34] LABS: BILIRUBIN,URINE NEGATIVE (NEGATIVE); COLOR,URINE YELLOW (YELLOW); LEUKOCYTE ESTERASE ,URINE SMALL (NEGATIVE); NITRITE, URINE NEGATIVE (NEGATIVE); PH,URINE 5.5 (5.0-8.0); PROTEIN,URINE NEGATIVE (NEGATIVE); UGLUCOSE 100 MG/DL mg/dL (NEGATIVE); UROBILINOGEN,URINE 0.2 EU/dL (0.2)
[2021-12-26 20:08] LABS: BACTERIA,URINE Few /HPF (None Seen); RBC,URINE 0-2 /HPF (0-2); SQUAMOUS EPITHELIAL CELL,UR Few /HPF (None Seen)
--- NOTE | 2021-12-26 20:42 | NUR ---
PAGED EPIC ELECTRO MECHANICAL TECHNOLOGIST
--- NOTE | 2021-12-26 20:45 | NUR ---
BED 308
--- NOTE | 2021-12-26 21:44 | NUR ---
REPORT GIVEN TO DOROTHY Ayoub RN FOR SRIKANTH
--- NOTE | 2021-12-26 21:45 | NUR ---
VISHNU VILLEGAS ANESTHESIOLOGIST/PHYSICIAN AT PT'S BEDSIDE. PT NOW MORE ALERT AND RESPONDS APPROPRIATELY TO QUESTIONS. TOLERATING R/A WELL
--- NOTE | 2021-12-26 21:59 | NUR ---
PT TRANSFERRING TO 3W VIA HOSPITAL PROTOCOL. VSS. ALL BELONGINGS WITH PT.
[2021-12-26 22:36] VITALS: BP 111/54
--- NOTE | 2021-12-26 23:00 | NUR ---
MS RN NOTES PT A/O X1-2 TAKES LONG PAUSES TO RESPOND ONLY SPEAKS WHEN SHE WANTS TO CAN FOLLOW COMMANDS WELL. HAS EPISODES OF CONFUSION. PT NOT IN RESPIRATORY DISTRESS ON ROOM AIR TOLERATING WELL. NO PAIN REPORTED AT THIS TIME. NOTED WITH IV ACCESS ON THE LFA #20G FLUSHING WELL S/L. PT SKIN IS DRY WARM AND INTACT. ONLY HAS A SMALL SCAB ON THE RIGHT KNEE PICTURE TAKEN AND PLACED IN CHART. PT APPEARS TO BE AMBULATORY SHE HAS FULL STRENGTH ON ALL EXTREMITIES AND CAN EASILY TURN AND REPOSITION HERSELF INDEPENDENTLY. PT IS TO HAVE PT EVAL LATER TODAY. PT ORIENTED TO UNIT AND ROOM. CALL LIGHT PLACED WITHIN REACH. TABLE WITHIN REACH. ALL NEEDS MET AT THIS TIME. PT INSTRUCTED ON HOW TO USE CALL LIGHT. BED ALARM ON BILATERAL SIDE RAILS UP FOR SAFETY X2. WILL CONTINUE TO MONITOR.
[2021-12-26 23:24] VITALS: BP 111/54
[2021-12-26] MEDS ORDERED: DEXTROSE 50%-WATER 50 ML DISP.SYRIN IV PRN (23:30)
[2021-12-26] MEDS ORDERED: ACETAMINOPHEN 325 MG TABLET PO PRN (23:30)
[2021-12-26] MEDS ORDERED: ONDANSETRON HCL/PF 4 MG/2 ML VIAL IVP PRN (23:30)
[2021-12-26] MEDS ORDERED: Z GUARD REMEDY 4 OZ OINT TP PRN (23:30)
[2021-12-26] MEDS ORDERED: ZOLPIDEM TARTRATE 5 MG TABLET PO PRN (23:30)
[2021-12-26] MEDS ORDERED: MAGNESIUM HYDROXIDE 30 ML UDC PO PRN (23:30)
[2021-12-26] MEDS ORDERED: MAG HYDROX/AL HYDROX/SIMETH 30 ML UDC PO PRN (23:30)
[2021-12-26] MEDS: ENOXAPARIN SODIUM 30 MG/0.3 ML DISP.SYRIN SQ SCH (23:42)
[2021-12-26] MEDS ORDERED: CEFTRIAXONE 1 G VIAL ONE (23:47)
[2021-12-26] MEDS: CEFTRIAXONE 1 G in IV D5W 50 ML IV SCH (23:56)
[2021-12-27 05:15] LABS: BASOPHILS % (AUTO) 0.6 % (0.0-2.0); EOSINOPHILS % (AUTO) 2.4 % (0.0-6.0); HEMATOCRIT 37 % (33-45); LYMPHOCYTES # (AUTO) 1.6 K/uL (0.8-4.8); LYMPHOCYTES % (AUTO) 29.9 % (20.0-44.0); MEAN CORPUSCULAR HGB CONC 33 g/dl (31.0-36.0); MEAN CORPUSCULAR VOLUME 89 fL (82-100); MONOCYTES # (AUTO) 0.6 K/uL (0.1-1.30); MONOCYTES % (AUTO) 10.1 % (2.0-12.0); NEUTROPHILS # (AUTO) 3.1 K/uL (1.8-8.9); PLATELET COUNT (AUTO) 210 K/uL (150-450); RED BLOOD CELL COUNT(AUTO) 4.13 MIL/uL (4.0-5.2); WHITE BLOOD COUNT (AUTO) 5.4 K/uL (4.3-11.0)
[2021-12-27 05:27] LABS: CALCIUM, SERUM 8.2 mg/dL (8.5-10.1); CARBON DIOXIDE 23 mmol/L (21-32); CHLORIDE 109 mmol/L (98-107); CREATININE 1.1 mg/dL (0.6-1.3); GLUCOSE 83 mg/dL (74-106); MAGNESIUM 2.1 mg/dL (1.8-2.4); POTASSIUM 3.6 mmol/L (3.5-5.1); SODIUM SERUM 140 mmol/L (136-145); UREA NITROGEN, BLOOD 19 mg/dL (7-18)
[2021-12-27 05:41] LABS: THYROID STIMULATING HORMONE 0.472 uIU/mL (0.358-3.74)
[2021-12-27] MEDS: BLOOD SUGAR DIAGNOSTIC 1 EACH STRIP IN SCH ×4 (06:36→22:01)
[2021-12-27] MEDS: IV 1/2NS 1000 ML 1,000 ML IV PRN ×2 (06:37→18:15)
[2021-12-27] MEDS: INSULIN REGULAR, HUMAN 100 UNIT/ML 3 ML VIAL SQ PRN ×4 (06:37→22:03)
--- NOTE | 2021-12-27 06:38 | NUR ---
MS RN NOTES PT A/0 X2 IN BED ABLE TO MAKE NEEDS KNOW.TABLE WITHIN REACH. CALL LIGHT WITHIN REACH. PT HAS 1/2 NS @75 ML/HR RUNNING FROM LFA #20G. ALL NEEDS ATTENDED TO WILL. ENDORSE TO DAY SHIFT SRIKANTH.
--- NOTE | 2021-12-27 07:28 | NUR ---
MS RN OPENING NOTES RECEIVED PT IN BED AWAKE. A/O X1-2, REORIENTED PT NEEDED. ON RA, TOLERATING WELL. NO SOB NOTED. NOT IN ANY SIGN OF RESPIRATORY DISTRESS. IV ACCESS IN LFA G #20 INTACT AND PATENT WITH 1/2 NS INFUSING AT 75ML/HR. SAFETY MEASURES IN PLACE: BED IN LOWEST AND LOCKED POSITION, SIDE RAILS UP, BED ALARM ON, AND CALL LIGHT WITHIN REACH. WILL CONTINUE TO MONITOR PT.
[2021-12-27 08:00] VITALS: BP 116/55
[2021-12-27] MEDS: PANTOPRAZOLE 40 MG TABLET.DR PO SCH (08:15)
--- NOTE | 2021-12-27 15:20 | NUR ---
SS Consult: SS Consult requested for safe DC planning. The pt. is a 76-year-old female patient that was admitted to MED SURG after case fitter found the patient being more lethargic than normal. per EMR. Per EMR, the pt. has Hx. of Dementia. Upon SS consult, the pt. is A&O x 3 and makes appropriate eye contact. Pt. does have some confusion. The pt. appears well-groomed and presents with a euthymic mood and affect. Pt. denies current SI/HI and denies current hallucinations. Pt. has normal thought process and speech is WNL. PSW explored pt.s living situation. Per pt., she lives at a senior apartment building[[address] [facility] [address]] alone. SW explored pt.s drug or alcohol use and pt. denies any use of drug or alcohol. Pt. states she receives SSI and SSDI. SW explored patients mental health Hx. and pt. denies. However, when asked about SI and auditory hallucinations patient stated, I didnt used to. Pt. did not provided additional information. Pt. presents bizarre, just stares and only answer select questions. DELORES discussed with patients nurse who provided SW with case fitter, Anjali James [phone]. SW requested psych consult. DELORES called Anjali [phone] who stated that the pt. has HX. of schizoaffective disorder and has been prescribed Seroquel and Risperdal. Per CM, the pt. recently stated that she has not been compliant with her medication. Per Anjali this apartment building is an independent living, and they did not assist with medication management. Anjali requested if pt. can go to SNF if pt. needs antibiotics as pt. has not been wanting to take her psych meds and may not want to comply. DELORES will discuss with CM. Plan: Pt. stated she would like to return home to her apt. [[address] [facility] [address]]. district manager postal service, Anjali [phone] stated they cannot assist with transportation but should be called when pt. is departing home via taxi so they can ensure that pt. arrives home safely. Noted. SW provided pt. with senior resources and pt. accepted them. ABUSE PREVENTION: ELDER ABUSE HOTLINE (31/12) ADULT PROTECTIVE SERVICES HOTLINE LONG-TERM CARE ANUPAM [facility] [[email or web address]] Region AREA ON AGING (HOTLINE) ADULT DAY HEALTH CARE CARE CENTERS: Private pay or [facility] funded adult day care [facility] Day Health Care [facility] , [facility] Services , [facility] Adult Care Center , [facility] Adult Day Health Care , [facility] Adult Day Health Care , [facility] Adult Daycare Center , [facility] Express , [facility] , [place] ALZHEIMERS DISEASE/DEMENTIA: Alzheimers Association Helpline [facility] www.alz.org/[facility] Department of Aging www.lacity.org Family Caregiver [place] www.caregiver.org [place] Caregiver Resources Center/Family Support www.[facility].org CANCER RESOURCES: Ukrainian Cancer Society www.cancer.org Cancer Support Community www.CancerSupportVvsb.org: CancerCare www.cancercare.org [facility] Cancer Support Center www.spark.org COMMUNITY HEALTH ASSOCIATIONS: AARP www.aarp.org ALS Association (ask for Eliza) www.als.org Ukrainian Diabetes Association www.diabetes.org Ukrainian Heart Association www.heart.org Ukrainian Lung Association www.lungusa.org Ukrainian Parkinson Disease Association www.apdaparkinson.org Ukrainian [place] , www.redcross.org Arthritis Foundation www.arthritis.org Crohns & Colitis Foundation of Ukrainian www.ccfa.org/chapters/[place] National Multiple Sclerosis Society www.nationalmssociety.org Myasthenia Gravis Foundation www.myasthenia-ca.org National Stroke Association www.stroke.org CONSERVATORSHIP & GUARDIANSHIP: TI Aislinn Henley Legal Services Center for Health Care Rights Eldercare Information and Referral Garde Manger [facility] [place] [facility]: [facility] Referral Service [facility] Legal Services Office of the Public Guardian [place] EYESIGHT DISORDER RESOURCES: [place] Macular Degeneration Foundation [facility] www.pomerene hospitalinstitute.org GRIEF AND BEREAVEMENT RESOURCES: The [place] , [facility] THE HOPE Connection , [facility] Bereavement Center , [place] HEARING DISORDER RESOURCES: [place] Telephone Access Program Deaf and Disabled Telecommunications Program www.ddtp.cpuc.ca.gov HearRx Hearing Centers ([place]) Better Hearing Systems , [place] GLAD ([facility] Agency on Deafness) V/ TTY; Chalk Tester , [facility] Hearing [facility] [place] -low income hearing aid assistance www.tidalhealth nanticokehearingfoundation.org [place] Hearing Care Cammie HELP AT HOME CAREGIVER SUPPORT: In Home Support Services (Must have Medi-Vish to be eligible) *Ask for a list of agencies that provide services to assist with care in the home. Local Senior Centers also have listings of care providers. HOME SAFETY MODIFICATIONS AND EQUIPMENT: Senior centers have additional referrals. [place] Servio and [place]co LS15 Dept. Handyworker Program (low income) or Visit http://hcidla.[facility].org/nqx-qrnunr-jo for more information National Seating and Mobility and/or ; Forever Active www.foreverMedialetsmed.Makoo Stay Home Safe www.Stayhomesafe.com LIFE ALERT RESPONSE SYSTEM: Kristy Lifeline Services 448-500-0807 www. LifeJustOne Database Inc..[place] Life Alert 764-782-4752 www.lifealert.Makoo Life Station 482-043-0315 www.iKang Healthcare Groupation.Makoo Safe Return 180-865-1094 www.alz.or/safereturn Cell Phones for Seniors www.TraderTools MEALS AND FOOD PROGRAMS: [place] Meals on Wheels [phone] [place] Meals on Wheels [phone] [facility] [phone] [place] to the Homebound [phone] [place] to the Homebound [phone] [facility] to the Homebound [phone] [facility] to the Homebound [phone] Luis Duncan [phone] Luca Barrientos [place] [phone] ONE Generation [phone] [facility] [phone] [facility] [phone] Meals on Wheels [phone] For all ages: $6.85/ meal w side. Delivered M-F from 10 am-1pm. Application and payment is done over the phone. Frozen meals available for weekends. Emergency Food [facility] [phone] [facility] Graining Operator [phone] [facility] [phone] Ascencion [facility] Outreach- Brown bag lunches [phone] [facility] [phone] MEAL/GROCERY DELIVERY PROGRAMS: HernandezPending sale to [facility] Gourmet Meals [phone]- [facility] [phone]- [facility] Magic Kitchen [phone] Moms Meals [phone] (ask Meneds for Discount Select grocery stores may provide delivery. MEDICAL INSURANCE SUPPORT SERVICES: Center for Health Care Rights [phone] Health Insurance Counseling/Advocacy Programs (HICAP)-Must have Medicare. Offers counseling for Medi-Vish eligibility [phone] Department of Public Graining Operator [phone] www.[facility].ca.gov Medicare [phone] www.socialsecurity.org Social Security [phone] SENIOR ACTIVITY PROGRAMS: *Contact a local senior center, adult school, recreation facility or community college for education, fitness, recreation, and social programs. Aquatic Therapy and Adapted Exercise programs through [facility] [phone] Encore at [facility] [phone] www.[facility] [place]/encore U- Senior Friends [phone] [place] Senior Programs [phone] www.oasisnet.org Suddenly 65 www..com SENIOR CENTERS: [facility] [phone] [facility] [phone] [facility] [phone] [facility] Innovation Center [place] [phone] [facility] [phone] [facility] [phone] [facility] [phone] [facility] [phone] One [facility] [phone] [facility] [phone] [facility] [phone] [facility] [phone] [facility] [phone] TRANSPORTATION: Local [facility] may have applications for transportation programs and additional resources. ACCESS Services [phone] Transportation for seniors and disabled persons 7 days a week requiring 254 hr. advance reservation. Must apply and register for program jc eligible. Objective Logistics [phone] or [phone] Transportation for seniors and persons with ADA card/metro disabled card in the [facility]. M-F only. Must register for services. ONE GENERATION [phone] Serves 65 years + in conjunction with pMDsofte program. Must be registered with both programs. A to B Transport [phone] Provides wheelchair/gurney van service. Adult Medical Transport [phone] [facility] with prior authorization. Care Van [phone] Provides wheelchair Transport. [facility] Wide Transportation [phone] Provides gurney service [facility] [phone] Gurney Transport. [facility] Transportation [phone] wheelchair & gurney transport [facility] Transportation [phone] wheelchair & gurney transport [place] Non-Emergency Transport [phone] wheelchair & gurney transport Independent Living [place] [phone] Short Term Transportation primarily for adults with disabilities on social security income. Nominal fee may apply and a reservation is required. [facility] Cab [phone] or [phone] BirdDog [phone] [place] [address] Services [phone] For additional programs & services VETERANS RESOURCES: Submissions for Aid and Attendance should be done directly to Federal VA office locatd at : [address] [facility] [phone] National Caregiver Support Line [phone] [facility] Veterans Services Field Office [phone] [place] Department of [place] Affairs [phone] Pension Information [phone]
[2021-12-27 16:14] VITALS: BP 115/50
--- NOTE | 2021-12-27 18:38 | NUR ---
MS RN CLOSING NOTES PT IN BED AWAKE. A/O X1-2, REORIENTED PT NEEDED. ON RA, TOLERATING WELL. NO SOB NOTED. NOT IN ANY SIGN OF RESPIRATORY DISTRESS. IV ACCESS IN RIGHT HAND G #22 INTACT AND PATENT WITH 1/2 NS INFUSING AT 75ML/HR. ALL NEEDS ATTENDED. KEPT CLEAN AND COMFORTABLE. SAFETY MEASURES IN PLACE: BED IN LOWEST AND LOCKED POSITION, SIDE RAILS UP, BED ALARM ON, AND CALL LIGHT WITHIN REACH. WILL ENDORSE TO WINDOW DRAPER NURSE FOR SRIKANTH.
[2021-12-27 20:12] VITALS: BP 109/46
[2021-12-27] MEDS: ENOXAPARIN SODIUM 30 MG/0.3 ML DISP.SYRIN SQ SCH (22:02)
[2021-12-28] MEDS: CEFTRIAXONE 1 G in IV D5W 50 ML IV SCH ×2 (00:12→23:49)
--- NOTE | 2021-12-28 00:56 | NUR ---
MS/TELE/RN PATIENT IS SLEEPING AT THIS TIME, APPEARS COMFORTABLE, NO SIGNS OF DISTRESS NOTED, CALL LIGHT WITHIN REACH, WILL MONITOR.
[2021-12-28] MEDS: BLOOD SUGAR DIAGNOSTIC 1 EACH STRIP IN SCH ×4 (06:58→21:59)
--- NOTE | 2021-12-28 07:06 | NUR ---
MS/TELE/RN PATIENT IS AWAKE, ALERT, ORIENTED, NO SIGNS OF DISTRESS NOTED, CALL LIGHT IN REACH, ALL NEEDS ATTENDED AT THIS TIME, WILL CONTINUE TO MONITOR.
--- NOTE | 2021-12-28 07:10 | NUR ---
MS RN OPENING NOTES RECEIVED PATIENT RESTING IN BED, A/O x1-2. RESPONSIVE TO VERBAL AND TACTILE STIMULI. MANDARIN SPEAKING. ON ROOM AIR NO S/S OF SOB OR RESPIRATORY DISTRESS NOTED. PATIENT USES BEDPAN. IV ACCESS L FA #20 G SL AND R HAND #22 G RUNNING 75 ML/HR NS. INTACT AND PATENT. NO S/S OF INFILTRATION. SKIN IS INTACT. SAFETY MEASURES IN PLACE: BED LOCKED AND IN LOWEST POSITION, SIDE RAILS UP x2, CALL LIGHT WITHIN REACH. WILL CONTINUE TO MONITOR.
[2021-12-28 07:24] LABS: BASOPHILS % (AUTO) 0.3 % (0.0-2.0); EOSINOPHILS % (AUTO) 2.7 % (0.0-6.0); HEMATOCRIT 35 % (33-45); HEMOGLOBIN 11.7 g/dL (11.5-14.8); LYMPHOCYTES # (AUTO) 1.4 K/uL (0.8-4.8); LYMPHOCYTES % (AUTO) 27.9 % (20.0-44.0); MEAN CORPUSCULAR HGB CONC 33 g/dl (31.0-36.0); MEAN CORPUSCULAR VOLUME 89 fL (82-100); MONOCYTES # (AUTO) 0.6 K/uL (0.1-1.30); MONOCYTES % (AUTO) 12.1 % (2.0-12.0); NEUTROPHILS # (AUTO) 2.8 K/uL (1.8-8.9); PLATELET COUNT (AUTO) 204 K/uL (150-450); RED BLOOD CELL COUNT(AUTO) 3.97 MIL/uL (4.0-5.2)
[2021-12-28 07:49] LABS: CALCIUM, SERUM 8.3 mg/dL (8.5-10.1); CREATININE 0.9 mg/dL (0.6-1.3); MAGNESIUM 1.9 mg/dL (1.8-2.4); PHOSPHORUS 2.8 mg/dL (2.5-4.9); POTASSIUM 3.5 mmol/L (3.5-5.1)
[2021-12-28] MEDS: PANTOPRAZOLE 40 MG TABLET.DR PO SCH (07:55)
[2021-12-28 08:25] VITALS: BP 108/54
[2021-12-28] MEDS: risperiDONE 0.25 MG TABLET PO SCH ×2 (11:05→17:00)
[2021-12-28] MEDS: INSULIN REGULAR, HUMAN 100 UNIT/ML 3 ML VIAL SQ PRN ×3 (11:37→21:42)
[2021-12-28] MEDS: IV 1/2NS 1000 ML 1,000 ML IV PRN (11:43)
--- NOTE | 2021-12-28 12:00 | NUR ---
RN NOTES BS:157 @ 1140, 2 UNITS OF INSULIN COVERAGE ADMINISTERED. WILL CONTINUE TO MONITOR.
--- NOTE | 2021-12-28 15:23 | NUR ---
SW faxed facesheet to: [employer] FAX:[phone] for psych consult and notified [employer] of consult request.
[2021-12-28 16:13] VITALS: BP 130/58
--- NOTE | 2021-12-28 17:25 | NUR ---
RN NOTES BS:197 @1710, 3 UNITS OF INSULIN COVERAGE ADMINISTERED. WILL CONTINUE TO MONITOR.
--- NOTE | 2021-12-28 18:32 | NUR ---
MS RN CLOSING NOTES PATIENT RESTING IN BED, A/O x2-3. RESPONSIVE TO VERBAL AND TACTILE STIMULI. MANDARIN SPEAKING. STABLE ROOM AIR NO S/S OF SOB OR RESPIRATORY DISTRESS NOTED. PATIENT USES BEDPAN. IV ACCESS L FA #20 G SL AND R HAND #22 G RUNNING 75 ML/HR NS. INTACT AND PATENT. NO S/S OF INFILTRATION. SKIN IS INTACT. ALL PRESCRIBED MEDICATION ADMINISTERED. SAFETY MEASURES MAINTAINED: BED LOCKED AND IN LOWEST POSITION, SIDE RAILS UP x2, CALL LIGHT WITHIN REACH. WILL ENDORSE TO NEXT SHIFT ANY SRIKANTH.
--- NOTE | 2021-12-28 19:10 | NUR ---
MS RN OPENING NOTES: RECEIVED PATIENT IN BED, AWAKE, A/O X2-3. NO S/S OF DISTRESS NOTED. NO COMPLAIN OF PAIN. CALL LIGHT WITHIN REACH. BED ALARM ON. BED IN LOWEST AND LOCKED POSITION.
[2021-12-28 20:00] VITALS: BP 140/58
[2021-12-28] MEDS: ENOXAPARIN SODIUM 30 MG/0.3 ML DISP.SYRIN SQ SCH (21:22)
[2021-12-28] MEDS: QUETIAPINE FUMARATE 25 MG TABLET PO SCH ×2 (21:23→22:00)
[2021-12-29] MEDS: IV 1/2NS 1000 ML 1,000 ML IV PRN (00:52)
[2021-12-29 06:19] LABS: BASOPHILS % (AUTO) 0.4 % (0.0-2.0); EOSINOPHILS % (AUTO) 1.6 % (0.0-6.0); HEMATOCRIT 37 % (33-45); HEMOGLOBIN 12.2 g/dL (11.5-14.8); LYMPHOCYTES # (AUTO) 1.4 K/uL (0.8-4.8); LYMPHOCYTES % (AUTO) 27.6 % (20.0-44.0); MEAN CORPUSCULAR HGB CONC 33 g/dl (31.0-36.0); MEAN CORPUSCULAR VOLUME 89 fL (82-100); MONOCYTES # (AUTO) 0.5 K/uL (0.1-1.30); MONOCYTES % (AUTO) 10.5 % (2.0-12.0); NEUTROPHILS # (AUTO) 3.1 K/uL (1.8-8.9); NEUTROPHILS % (AUTO) 59.9 % (43.0-81.0); PLATELET COUNT (AUTO) 208 K/uL (150-450); RED BLOOD CELL COUNT(AUTO) 4.17 MIL/uL (4.0-5.2); WHITE BLOOD COUNT (AUTO) 5.2 K/uL (4.3-11.0)
[2021-12-29] MEDS: INSULIN REGULAR, HUMAN 100 UNIT/ML 3 ML VIAL SQ PRN ×2 (06:30→11:37)
[2021-12-29] MEDS: BLOOD SUGAR DIAGNOSTIC 1 EACH STRIP IN SCH ×2 (06:31→11:35)
--- NOTE | 2021-12-29 06:31 | NUR ---
blood sugar checked= 129, no insulin given.
[2021-12-29 07:01] LABS: CALCIUM, SERUM 8.7 mg/dL (8.5-10.1); CREATININE 0.9 mg/dL (0.6-1.3); MAGNESIUM 1.9 mg/dL (1.8-2.4); PHOSPHORUS 3.2 mg/dL (2.5-4.9); POTASSIUM 3.8 mmol/L (3.5-5.1)
--- NOTE | 2021-12-29 07:05 | NUR ---
MS RN OPENING NOTES RECEIVED PATIENT RESTING IN BED, A/O x2-3. RESPONSIVE TO VERBAL AND TACTILE STIMULI. MANDARIN SPEAKING. ON ROOM AIR NO S/S OF SOB OR RESPIRATORY DISTRESS NOTED. PATIENT USES BEDPAN. IV ACCESS L FA #20 G SL AND R HAND #22 G RUNNING 75 ML/HR NS. INTACT AND PATENT. NO S/S OF INFILTRATION. SKIN IS INTACT. SAFETY MEASURES IN PLACE: BED LOCKED AND IN LOWEST POSITION, SIDE RAILS UP x2, CALL LIGHT WITHIN REACH. WILL CONTINUE TO MONITOR.
[2021-12-29] MEDS: PANTOPRAZOLE 40 MG TABLET.DR PO SCH ×2 (07:30→08:15)
[2021-12-29] MEDS: risperiDONE 0.25 MG TABLET PO SCH ×2 (08:15→08:22)
[2021-12-29 08:17] VITALS: BP 143/59
--- NOTE | 2021-12-29 08:24 | NUR ---
RN NOTES MORNING MEDICATION PROTONIX AND RISPERIDONE OPENED AND OFFERED TO PATIENT TO TAKE. PATIENT BEGAN TO SHAKE HEAD. MEDICATION WAS OFFERED LATER AGAIN BUT PATIENT CONTINUED TO REFUSE. MEDICATION WAS WASTED, WITNESSED BY DUANE ROSA.
[2021-12-29] MEDS ORDERED: QUET25TA PO (09:59)
[2021-12-29] MEDS ORDERED: RISP0.2515 PO (09:59)
--- NOTE | 2021-12-29 16:00 | NUR ---
SEMICONDUCTOR MANUFACTURING TECHNICIAN NOTES PATIENT DISCHARGED HOME. A/O x2-3, STABLE ON ROOM AIR. NO S/S OF RESPIRATORY DISTRESS. MANDARIN SPEAKING BUT ABLE TO UNDERSTAND URUGUAYAN. PATIENT GIVEN DISCHARGE INSTRUCTIONS AND HEALTH EDUCATION, PATIENT NODDED IN UNDERSTANDING DISCHARGE INSTRUCTIONS. MEDICATIONS LIST GIVEN TO PATIENT, PATIENT NODDED AND VERBALIZED UNDERSTANDING. IV ACCESS OF R HAND AND L FA REMOVED. PRESSURE DRESSING APPLIED, NO S/S OF BLEEDING. ID BANDS REMOVED. TAXI VOUCHER COLLECTED AND TAXI CALLED FOR PATIENT. PATIENT LEFT UNIT @1517, ACCOMPANIED BY DUANE AGEE VIA WHEELCHAIR TO TAXI. PATIENT LEFT WITH TAXI AND PATIENT'S BANDMILL OPERATOR, [facility] WAS INFORMED OF PATIENT'S DEPARTURE FROM HOSPITAL. CHARGE NURSE AND MD AWARE OF DISCHARGE.
== END 2021-12-29 15:17 | disposition home or self-care (01) | DRG 689 ==
LOC: ER 14:15 → MED 20:57
PROVIDERS: ADMIT Nurse Practitioner Family; ATTEND Student in an Organized Health Care Education/Training Program
DX: N39.0 Urinary tract infection, site not specified (principal); G93.41 Metabolic encephalopathy; F05 Delirium due to known physiological condition; J98.11 Atelectasis; M48.56XA Collapsed vertebra, not elsewhere classified, lumbar region, initial encounter for fracture; E86.0 Dehydration; F03.90 Unspecified dementia, unspecified severity, without behavioral disturbance, psychotic disturbance, mood disturbance, and anxiety; E11.9 Type 2 diabetes mellitus without complications; D25.9 Leiomyoma of uterus, unspecified; E78.5 Hyperlipidemia, unspecified; J45.909 Unspecified asthma, uncomplicated; G24.9 Dystonia, unspecified; Z88.8 Allergy status to other drugs, medicaments and biological substances; Z79.84 Long term (current) use of oral hypoglycemic drugs; Z79.4 Long term (current) use of insulin; Z79.51 Long term (current) use of inhaled steroids; Z79.82 Long term (current) use of aspirin; E88.09 Other disorders of plasma-protein metabolism, not elsewhere classified; Z79.899 Other long term (current) drug therapy; B96.89 Other specified bacterial agents as the cause of diseases classified elsewhere; F31.9 Bipolar disorder, unspecified; I10 Essential (primary) hypertension; F20.9 Schizophrenia, unspecified; F29 Unspecified psychosis not due to a substance or known physiological condition; I70.0 Atherosclerosis of aorta; Z87.891 Personal history of nicotine dependence; K57.30 Diverticulosis of large intestine without perforation or abscess without bleeding; Z98.1 Arthrodesis status
CPT/HCPCS: 36415; 70450-TC; 71045-TC; 80048-TC; 80076-TC; 81001; 82140-TC; 82962-TC; 83735-TC; 84100-TC; 84443-TC; 85025-TC; 85730-TC; 87081-TC; 87086-TC; 97116-TC; 97530-TC; C9803; G0378; G0480; J0696; J1650; J1815; J3490; J7030; J7060

== ENCOUNTER 2022-01-02 18:13 | Emergency (ER) | payer OTHER ==
[~2022-01-02] VITALS: Ht 157.5 cm; Wt 52.6 kg
[~2022-01-02 18:13] MED LIST changes: +ERGO500093 PO; -GLUC1KIT IM; -HALO5AMP3 IM; +LISI10TA29 PO; +QUET25TA PO; -QUET50TA PO; +ROMO210S SQ; +SITA25TA PO; -TRAZ-182 PO
[2022-01-02] MEDS ORDERED: IV NS 0.9% 1,000 ML BAG IV ONE (18:30)
--- NOTE | 2022-01-02 18:31 | NUR ---
PHLEB TECH AT BEDSIDE FOR BLOOD DRAW.
[2022-01-02 19:03] LABS: CALCIUM, SERUM 8.4 mg/dL (8.5-10.1); CREATININE 1.3 mg/dL (0.6-1.3)
[2022-01-02 19:11] LABS: BILIRUBIN,DIRECT 0.1 mg/dL (0.0-0.2); BILIRUBIN,TOTAL 0.5 mg/dL (0.2-1.0)
[2022-01-02 19:12] LABS: TOTAL PROTEIN, SERUM 6.7 g/dL (6.4-8.2)
--- NOTE | 2022-01-02 19:30 | NUR ---
RECEIVED REPORT FROM JCAI ZEPEDA FOR SRIKANTH, PT IS RESTING COMFORTABLY IN BED, SHE IS ALERT AND ORIENTED. AMBULATORY W/ STEADY GAIT. DENIES ANY PAIN AT THIS TIME. CONNECTED TO MONITOR, VSS. WILL CONTINUE TO MONITOR
--- NOTE | 2022-01-02 19:35 | NUR ---
URINE SAMPLE COLLECTED AND SENT TO LAB
[2022-01-02 19:53] LABS: BASOPHILS % (AUTO) 0.4 % (0.0-2.0); EOSINOPHILS % (AUTO) 1.1 % (0.0-6.0); HEMATOCRIT 37 % (33-45); HEMOGLOBIN 12.3 g/dL (11.5-14.8); LYMPHOCYTES % (AUTO) 18.6 % (20.0-44.0); MEAN CORPUSCULAR HGB CONC 33 g/dl (31.0-36.0); MEAN CORPUSCULAR VOLUME 88 fL (82-100); MONOCYTES # (AUTO) 0.6 K/uL (0.1-1.30); MONOCYTES % (AUTO) 11.9 % (2.0-12.0); NEUTROPHILS # (AUTO) 3.7 K/uL (1.8-8.9); PLATELET COUNT (AUTO) 212 K/uL (150-450); RED BLOOD CELL COUNT(AUTO) 4.22 MIL/uL (4.0-5.2); WHITE BLOOD COUNT (AUTO) 5.4 K/uL (4.3-11.0)
[2022-01-02 20:09] LABS: BILIRUBIN,URINE NEGATIVE (NEGATIVE); COLOR,URINE YELLOW (YELLOW); LEUKOCYTE ESTERASE ,URINE NEGATIVE (NEGATIVE); NITRITE, URINE NEGATIVE (NEGATIVE); PROTEIN,URINE NEGATIVE (NEGATIVE); UGLUCOSE >=1000 mg/dL (NEGATIVE); UROBILINOGEN,URINE 0.2 EU/dL (0.2)
--- NOTE | 2022-01-02 20:33 | NUR ---
[facility],
--- NOTE | 2022-01-02 21:13 | NUR ---
CALLED [facility], ERP PROGRAMMER, SHE WILL FIND OUT IF THERE'S SOMEONE AVAILABLE TO RECEIVED THE PATIENT AT HOME AND WILL CALL ME BACK
--- NOTE | 2022-01-02 21:42 | NUR ---
[facility] ETA 3045
--- NOTE | 2022-01-02 23:04 | NUR ---
[facility] AT BEDSIDE FOR PATIENT TRANSPORT BACK TO HOME.
[2022-01-02 23:05] VITALS: BP 131/72
--- NOTE | 2022-01-02 23:06 | NUR ---
IV removed. Catheter intact and site benign. Pressure and 4x4 applied to site. No bleeding noted.
== END 2022-01-02 23:17 | disposition home or self-care (01) ==
LOC: ER 18:19
DX: E11.65 Type 2 diabetes mellitus with hyperglycemia (principal); I10 Essential (primary) hypertension; F17.200 Nicotine dependence, unspecified, uncomplicated; Z98.890 Other specified postprocedural states; Z79.899 Other long term (current) drug therapy; Z79.82 Long term (current) use of aspirin; Z79.84 Long term (current) use of oral hypoglycemic drugs
CPT/HCPCS: 99283; 96360; 85025; 80048; 80076; 81003; 36415; 82962; J7030